=== PATIENT | male | born 1970 ===

== ENCOUNTER 2025-03-06 21:00 | Inpatient (IN) | payer BC ==
[~2025-03-06] VITALS: Ht 175.3 cm; Wt 77.5 kg
[2025-03-06 23:03] VITALS: RESP 16; O2SAT 97
[2025-03-06 23:47] VITALS: BP 115/78; PULSE 82; RESP 16; TEMP 97.5; O2SAT 98
[2025-03-07] MEDS ORDERED: acetaminophen 325mg tablet PO PRN (00:05)
[2025-03-07] MEDS: mag hydrox/Alum hydrox/simeth 30ml oral suspension PO ONE (00:29)
[2025-03-07] MEDS: magnesium hydroxide 30ml (MOM) UD suspension PO ONE (00:29)
[2025-03-07] MEDS: hydrOXYzine 25 MG tablet PO PRN ×2 (00:33→20:49)
[2025-03-07] MEDS: traZODone 50mg tablet PO PRN ×2 (00:34→20:48)
[2025-03-07] MEDS ORDERED: magnesium hydroxide 30ml (MOM) UD suspension PO PRN (00:50)
[2025-03-07] MEDS ORDERED: mag hydrox/Alum hydrox/simeth 30ml oral suspension PO PRN (00:50)
[2025-03-07 07:00] VITALS: RESP 18; O2SAT 99
[2025-03-07 08:00] VITALS: BP 115/75; PULSE 68; RESP 18; TEMP 98.3; O2SAT 99
--- NOTE | 2025-03-07 12:59 | HISTORY AND PHYSICAL ---
MH History & Physical - Blank History and Physical CHIEF COMPLIANT INCREASED ANXIETY HISTORY OF PRESENT ILLNESS 4-year-old male presents for feeling of anxiety and stress in suicidal ideations. Has been going on for some time. States that seems to come and go as his stress levels flare up. He has no direct plantar himself. Patient was recently started on Zoloft a couple of days ago but does not feel like this has helped. Has been very stressed out about work and his taxes he states. No acute medical complaints. He never attempted suicide before. States he has some knives at his house but not any guns or other weapons. CHART REVIEW [facility] call [facility] to evaluate client that was brought in by ambulance after having a panic attack. When [facility] arrived to the ER client was in bed 8.. Client was visibly shaking and was having a hard time speaking without having the shaking in his in his voice. Client had his friend with him that als o works with him. Client reports that he has had an increase in his depression and anxiety to the point that he feels like he is not functioning. Starting to missed work. Client has a gradual weight loss, loss of appetite, low motivation, feels like his head is starting to buzzed and is possibly hearing voices but is confused if it is him thinking or if they are voices. At for eye contact and concentration. Client is currently taking Zoloft 25 mg q.d., gabapentin 100 mg t.i.d., hydroxyzine 25 mg 1-2 tabs q.d. prn, when asked if client is having SI he reports that he has in the past but it also at the point where he does not care if he falls asleep and does not wake up. Active he is able to stay safe he comment was I can not prominence you anything, I will or I will not; client's friend Bhupinder Jacome (on JIMENEZ [phone]). For she has known him for a few years and has never seeing him this way in his very worried for him because he is not showing up to work in his visibly in the condition th at he is in. Client reports he has had a decrease in sleep, his major brain fog. Client was placed on DTS 5150. Client was not able to articulate any plan of safety. ASSESSMENT The patient was interviewed in observation room. The patient was actively sitting in rec room appears to be watching. 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 Denies AVH. The patient is stable no acute distress noted. The patient is depressed, very anxious, and engaged during session. Per staff report melissa is medication compliant. Will continue daily assessment and adjusting treatment as needed. Closely monitor behavior and response to medication during hospitalization. Discussed treatment plan with patient. ASE/risks and benefits of chosen treat ment. He verbalized understanding and consented to treatment. REVIEW OF LABS URINE TOX SCREEN NEGATIVE URINALYSIS NEGATIVE SODIUM 137 POTASSIUM 4.2 CHLORIDE 103 ANION GAP 11 BUN 11 CREATININE 0.91 CALCIUM 9.5 ALBUMIN 4.7 AST 37 ALT 29 WBC 5.8 RBC 5.88 HEMOGLOBIN 16.2 HEMATOCRIT 45.7 PLATELET 328 MENTAL STATUS EXAM APPEARANCE: APPROPRIATE..AVERAGE HEIGHT AND WEIGHT MALE. BLACK HAIR BALDING IN THE FRONT. FULL FACIAL HAIR. WEARING GREEN SCRUBS. 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 PROPRANOLOL 10 MG P.O. Q.H.S. PROZAC 10 MG P.O. Q.H.S. Monitoring by Staff, Milieu, Group, and Individual counseling as needed -- According to the [place] Suicide Assessment the above named patient is on Q15 MINUTE CHECKS. [id number]- The patient does not have a good safety plan for discharge at this time. We are still titrating medications to an effective dose while maintaining a therapeutic environment to prevent decompensation and readmission. REVIEW OF Clinical notes [X ] RN notes [X] PCT documentation [X] SW notes Labs [ X] Medications [X] Care trends/care activity [X] Vitals [X] DISCUSSION WITH bulldozer/loader/compactor/scraper [X] Staff SW [X] Treatment Team [X] DISCHARGE UNSURE AT THIS TIME. DISCHARGE HOME ONCE STABLE. Past Psychiatric History Past Psychiatric History DENIES ANY PSYCHIATRIC HOSPITALIZATION Past Medical History Past Medical History SEE MEDICAL H & P Past Surgical History Past Surgical History RIGHT KNEE BILATERAL ROTATOR CUFF SURGERY Substance Abuse History Substance Abuse History MARIJUANA-DENIES ALCOHOL-OCC ILLICIT DRUGS-DENIES TOBACCO-DENIES Personal History Current Living Situation [facility] Marital & Relationship History DIVORCE.3 CHILDREN.SINGLE Sexual History DEFER Occupational History EMPLOYED Social Activity BORN AND RAISED IN [place] 1 [employer] [employer] MOM AND DAD IN THE HOME 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
[2025-03-07] MEDS ORDERED: sertraline 50mg tablet PO SCH (13:15)
[2025-03-07] MEDS: LORazepam 1 MG tablet PO ONE (13:36)
--- NOTE | 2025-03-07 15:09 | HISTORY AND PHYSICAL ---
History & Physical Providers to CC ~ History of Present Illness Reason for Admit\Complaint: feeling of anxiety , stress and suicidal ideations History of Present Illness 54-year-old male presents for feeling of anxiety and stress in suicidal ideations. this has been going on for some time. Patient was recently started on Zoloft a couple of days ago but does not feel like this has helped. Has been very stressed out about work. No acute medical complaints. Patient feels that stresses too much to the point that he has no appetite and he is not hydrating much either. He lives by himself in his house. Currently he works in [employer]. Patient mentioned that his cholesterol levels were high but he is currently not on any cholesterol medication. He feels he has peripheral neuropathy. Denied use of any tobacco or any recreational drugs. he occasionally drinks alcohol. Allergies: Coded Allergies: No Known Drug Allergies (Verified Allergy, Unknown, 03/07/25) No Known Food Allergies (Verified Allergy, Unknown, 03/07/25) Past Medical History Past Medical History No significant past medical history except for elevated lipid levels Past Surgical History Surgical History Comment History of rotator cuff in past . Past Social History Social History Comment Denied use of any tobacco alcohol or any recreational drugs. He lives by himself in his house. ROS ROS Review of system as mentioned above in HPI rest of the review of system unremarkable Exam Vitals: Vital Signs Date Time Temp Pulse Resp B/P (MAP) Pulse Ox O2 Delivery O2 Flow Rate FiO2 03/07/25 08:00 98.3 68 18 115/75 (88) 99 Room Air General: General-patient not in any acute distress, alert awake , age-appropriate, appear in stress HEENT-atraumatic normocephalic, neck supple without elevated JVD, no thyromegaly or carotid bruit. No lymphadenopathy bilaterally. Eyes-no icterus or pallor seen in eyes Chest-clear to auscultation bilaterally, breathing nonlabored no tachypnea, no wheezing, no crepitation, no crackles. Heart-S1-S2 normal, regular heart rate no murmur Abdomen bowel sounds positive on auscultation, soft nondistended nontender no guarding, no rigidity Skin no active skin rash Neurology-grossly intact, nonfocal awake cooperated during physical examination Extremity- no pedal edema able to move all 4 extremitie, ambulate Psychiatry - patient appear in stress Additional Plan 54-year-old male presents for feeling of anxiety and stress in suicidal ideations. Further management of patient's stress anxiety and depression as per psychiatric team. Lipid level ordered for a.m. we will continue to follow patient from hospitalist team as needed. Patient is encouraged to hydrate well and to keep up with his meals. Date of Service: March 07, 2025 Billing Provider: TEREZA GLOVER MD Common Visit Codes: [id number] INP/OBS CARE (LOW) TEREZA GLOVER MD March 07, 2025 15:09
[2025-03-07 19:00] VITALS: RESP 16; O2SAT 97
[2025-03-07 20:00] VITALS: BP 96/64; PULSE 66; RESP 16; TEMP 97.5; O2SAT 97
[2025-03-07 20:45] VITALS: BP 116/73; PULSE 68
[2025-03-07] MEDS: FLUoxetine 10mg capsule PO SCH (20:47)
[2025-03-07] MEDS: propranolol 10mg tablet PO SCH (20:48)
[2025-03-08 07:00] VITALS: RESP 16; O2SAT 94
[2025-03-08 08:00] VITALS: BP 106/65; PULSE 69; RESP 16; TEMP 98; O2SAT 94
--- NOTE | 2025-03-08 14:43 | PROGRESS NOTE ---
Progress Note Dictate Providers to CC ~ Central Line/PICC still needed: N\\A Antibiotic Ordered?: No MRSA Education MRSA Education Provided to pt: No Objective Vitals Vital Signs Date Time Temp Pulse Resp B/P (MAP) Pulse Ox O2 Delivery O2 Flow Rate FiO2 03/08/25 08:00 98.0 69 16 106/65 (79) 94 Room Air Problem\\Assessment\\Plan Problems/Diagnosis: (1) Depression, unspecified (2) Anxiety disorder, unspecified Psychiatrist's Progress Note Date of Service: March 08, 2025 Notes CHART REVIEW [facility] call [facility] to evaluate client that was brought in by ambulance after having a panic attack. When [facility] arrived to the ER client was in bed 8.. Client was visibly shaking and was having a hard time speaking without having the shaking in his in his voice. Client had his friend with him that also works with him. Client reports that he has had an increase in his depression and anxiety to the point that he feels like he is not functioning. Starting to missed work. Client has a gradual weight loss, loss of appetite, low motivation, feels like his head is starting to buzzed and is possibly hearing voices but is confused if it is him thinking or if they are voices. At for eye contact and concentration. Client is currently taking Zoloft 25 mg q.d., gabapentin 100 mg t.i.d., hydroxyzine 25 mg 1-2 tabs q.d. prn, when asked if client is having SI he reports that he has in the past but it also at the point where he does not care if he falls asleep and does not wake up. Active he is able to stay safe he comment was I can not prominence you anything, I will or I will not; client's friend Bhupinder Jacome (on JIMENEZ [phone]). For she has known him for a few years and has never seeing him this way in his very worried for him because he is not showing up to work in his visibly in the condition that he is in. Client reports he has had a decrease in sleep, his major brain fog. Client was placed on DTS 5150. Client was not able to articulate any plan of safety. ASSESSMENT The patient was interviewed in observation room. The patient was actively sitting in rec room appears to be watching. The patient endorses "I am doing o judit I guess." "My anxiety is mellowed out but I still have the brain fog." Depression "I don't know." "I am usually a positive mohamud but everything is bad right now." Denies SI. Denies HI. Denies AVH. The patient is stable no acute distress noted. The patient is a bit depressed, a bit anxious, and engaged during session. Per staff report patient is medication compliant. Per staff report patient participating in group/unit activities. Will continue daily assessment and adjusting treatment as needed. Closely monitor behavior and response to medication during hospitalization. Results Of any Diagn. Testing REVIEW OF LABS URINE TOX SCREEN NEGATIVE URINALYSIS NEGATIVE SODIUM 137 POTASSIUM 4.2 CHLORIDE 103 ANION GAP 11 BUN 11 CREATININE 0.91 CALCIUM 9.5 ALBUMIN 4.7 AST 37 ALT 29 WBC 5.8 RBC 5.88 HEMOGLOBIN 16.2 HEMATOCRIT 45.7 PLATELET 328 Appearnace: Other (APPROPRIATE..AVERAGE HEIGHT AND WEIGHT MALE. BLACK HAIR BALDING IN THE FRONT. FULL FACIAL HAIR. WEARING GREEN SCRUBS.) Speech: Other (CIRCUMSTANTIAL) Eye Contact: Avoidant Motor Activity: Normal Affect: Flat Mood: Anxious, Depressed Attention: Distracted Hallucinations: None Other: None Suicidality: None Homicidality: None Delusions: None Behavior: Withdrawn Insight: Poor Judgment: Poor Treatment PROPRANOLOL 10 MG P.O. Q.H.S. PROZAC 10 MG P.O. Q.H.S. Monitoring by Staff, Milieu, Group, and Individual counseling as needed -- According to the [place] Suicide Assessment the above named patient is on Q15 MINUTE CHECKS. [id number]- The patient does not have a good safety plan for discharge at this time. We are still titrating medications to an effective dose while maintaining a therapeutic environment to prevent decompensation and readmission. REVIEW OF Clinical notes [X ] RN notes [X] PCT documentation [X] SW notes Labs [ X] Medications [X] Care trends/care activity [X] Vitals [X] DISCUSSION WITH ship boss [X] Staff SW [X] Treatment Team [X] Discharge UNSURE AT THIS TIME. DISCHARGE HOME ONCE STABLE. CODING VISIT-PSYCHIATRY Date of Service: March 08, 2025 Billing Provider: BERNARD SÁNCHEZ APRN Psych Common Visit Codes: [id number] INP/OBS CARE(Mod) BERNARD SÁNCHEZ [employer]EN[employer] SERVICE SU[employer]PLY DISTRIBUTOR March 08, 2025 14:43
[2025-03-08] MEDS: LORazepam 1 MG tablet PO ONE (15:27)
[2025-03-08 19:00] VITALS: RESP 16; O2SAT 96
[2025-03-08 20:00] VITALS: BP 110/70; PULSE 68; RESP 16; TEMP 97.1; O2SAT 96
[2025-03-09 07:00] VITALS: RESP 17; O2SAT 98
[2025-03-09 08:00] VITALS: BP 95/58; PULSE 57; RESP 17; TEMP 97.8; O2SAT 98
--- NOTE | 2025-03-09 12:14 | PROGRESS NOTE ---
Progress Note Dictate Providers to CC ~ Central Line/PICC still needed: N\\A Antibiotic Ordered?: No MRSA Education MRSA Education Provided to pt: No Objective Vitals Vital Signs Date Time Temp Pulse Resp B/P (MAP) Pulse Ox O2 Delivery O2 Flow Rate FiO2 03/09/25 08:00 97.8 57 17 95/58 (70) 98 Room Air Problem\\Assessment\\Plan Problems/Diagnosis: (1) Depression, unspecified (2) Anxiety disorder, unspecified Psychiatrist's Progress Note Date of Service: March 09, 2025 Notes CHART REVIEW [facility] call [facility] to evaluate client that was brought in by ambulance after having a panic attack. When [facility] arrived to the ER client was in bed 8.. Client was visibly shaking and was having a hard time speaking without having the shaking in his in his voice. Client had his friend with him that also works with him. Client reports that he has had an increase in his depression and anxiety to the point that he feels like he is not functioning. Starting to missed work. Client has a gradual weight loss, loss of appetite, low motivation, feels like his head is starting to buzzed and is possibly hearing voices but is confused if it is him thinking or if they are voices. At for eye contact and concentration. Client is currently taking Zoloft 25 mg q.d., gabapentin 100 mg t.i.d., hydroxyzine 25 mg 1-2 tabs q.d. prn, when asked if client is having SI he reports that he has in the past but it also at the point where he does not care if he falls asleep and does not wake up. Active he is able to stay safe he comment was I can not prominence you anything, I will or I will not; client's friend Bhupinder Jacome (on JIMENEZ [phone]). For she has known him for a few years and has never seeing him this way in his very worried for him because he is not showing up to work in his visibly in the condition that he is in. Client reports he has had a decrease in sleep, his major brain fog. Client was placed on DTS 5150. Client was not able to articulate any plan of safety. ASSESSMENT The patient was interviewed in observation room. The patient was actively sitting in rec room appears to be watching. The patient endorses "I am a bit sl eepy." "I took 2 sleeping pills last night." Depression "It is okay right now." "I don't really feel anxiety right now maybe because I am sleepy from the meds." Denies SI. Denies HI. Denies AVH. The patient is stable no acute distress noted. The patient is less depressed, less anxious, and engaged during session. Per staff report patient is medication compliant. The patient encouraged not to take anything and trazodone together to avoid over sedation. Per staff report patient participating in group/unit a ctivities. Will continue daily assessment and adjusting treatment as needed. Closely monitor behavior and response to medication during hospitalization. Results Of any Diagn. Testing REVIEW OF LABS URINE TOX SCREEN NEGATIVE URINALYSIS NEGATIVE SODIUM 137 POTASSIUM 4.2 CHLORIDE 103 ANION GAP 11 BUN 11 CREATININE 0.91 CALCIUM 9.5 ALBUMIN 4.7 AST 37 ALT 29 WBC 5.8 RBC 5.88 HEMOGLOBIN 16.2 HEMATOCRIT 45.7 PLATELET 328 Appearnace: Other (APPROPRIATE..AVERAGE HEIGHT AND WEIGHT MALE. BLACK HAIR BALDING IN THE FRONT. FULL FACIAL HAIR. WEARING GREEN SCRUBS.) Eye Contact: Normal, Other Motor Activity: Normal Affect: Constricted Mood: Depressed Orientation Impairment: None Memory Impairment: None Attention: Normal Hallucinations: None Other: None Suicidality: None Homicidality: None Delusions: None Behavior: Cooperative Insight: Poor Judgment: Poor Treatment PROPRANOLOL 10 MG P.O. QAM PROZAC 10 MG P.O. QAM Monitoring by Staff, Milieu, Group, and Individual counseling as needed -- According to the [place] Suicide Assessment the above named patient is on Q15 MINUTE CHECKS. [id number]- The patient does not have a good safety plan for discharge at this time. We are still titrating medications to an effective dose while maintaining a therapeutic environment to prevent decompensation and readmission. REVIEW OF Clinical notes [X ] RN notes [X] PCT documentation [X] SW notes Labs [ X] Medications [X] Care trends/care activity [X] Vitals [X] DISCUSSION WITH manager visual [X] Staff SW [X] Treatment Team [X] Discharge UNSURE AT THIS TIME. DISCHARGE HOME ONCE STABLE. CODING VISIT-PSYCHIATRY Date of Service: March 09, 2025 Billing Provider: PRINCESS,BERNARD CNA HHA Psych Common Visit Codes: [id number] INP/OBS CARE(Mod) BERNARD SÁNCHEZ APRN March 09, 2025 12:14
--- NOTE | 2025-03-09 16:43 | PROGRESS NOTE ---
Daily Progress Note Providers to CC ~ Antibiotic Timeout Antibiotic Ordered?: No Subjective Patient was seen in his room looks comfortable feeling better. No other new concerns Objective Vital Signs Date Time Temp Pulse Resp B/P (MAP) Pulse Ox O2 Delivery O2 Flow Rate FiO2 03/09/25 08:00 97.8 57 17 95/58 (70) 98 Room Air General-patient not in any acute distress, alert awake , age-appropriate, appear in stress HEENT-atraumatic normocephalic, neck supple without elevated JVD, no thyromegaly or carotid bruit. No lymphadenopathy bilaterally. Eyes-no icterus or pallor seen in eyes Chest-clear to auscultation bilaterally, breathing nonlabored no tachypnea, no wheezing, no crepitation, no crackles. Heart-S1-S2 normal, regular heart rate no murmur Abdomen bowel sounds positive on auscultation, soft nondistended nontender no guarding, no rigidity Skin no active skin rash Neurology-grossly intact, nonfocal awake cooperated during physical examination Extremity- no pedal edema able to move all 4 extremitie, ambulate Psychiatry - patient appear in stress Problem\Assessment\Plan 54-year-old male presents for feeling of anxiety and stress in suicidal ideations. Further management of patient's stress anxiety and depression as per psychiatric team. Lipid level ordered for a.m. we will continue to follow patient from hospitalist team as needed. Patient is encouraged to hydrate well and to keep up with his meals. Date of Service: March 09, 2025 Billing Provider: TEREZA GLOVER MD Common Visit Codes: [id number] INP/OBS CARE(LOW) TEREZA GLOVER MD March 09, 2025 16:43
[2025-03-09 19:00] VITALS: RESP 16; O2SAT 98
[2025-03-09 20:00] VITALS: BP 111/66; PULSE 73; RESP 16; TEMP 97.2; O2SAT 98
[2025-03-09] MEDS: loratadine 10mg tablet PO STA (22:29)
[2025-03-10 07:00] VITALS: RESP 16; O2SAT 97
[2025-03-10 08:00] VITALS: BP 119/75; PULSE 62; RESP 16; TEMP 98; O2SAT 97
--- NOTE | 2025-03-10 18:00 | PROGRESS NOTE ---
Progress Note Dictate Providers to CC ~ Central Line/PICC still needed: N\\A Antibiotic Ordered?: No MRSA Education MRSA Education Provided to pt: No Objective Vitals Vital Signs Date Time Temp Pulse Resp B/P (MAP) Pulse Ox O2 Delivery O2 Flow Rate FiO2 03/10/25 08:00 98.0 62 16 119/75 (90) 97 Room Air Problem\\Assessment\\Plan Problems/Diagnosis: (1) Depression, unspecified (2) Anxiety disorder, unspecified Psychiatrist's Progress Note Date of Service: March 10, 2025 Notes CHART REVIEW [facility] call [facility] to evaluate client that was brought in by ambulance after having a panic attack. When [facility] arrived to the ER client was in bed 8.. Client was visibly shaking and was having a hard time speaking without having the shaking in his in his voice. Client had his friend with him that also works with him. Client reports that he has had an increase in his depression and anxiety to the point that he feels like he is not functioning. Starting to missed work. Client has a gradual weight loss, loss of appetite, low motivation, feels like his head is starting to buzzed and is possibly hearing voices but is confused if it is him thinking or if they are voices. At for eye contact and concentration. Client is currently taking Zoloft 25 mg q.d., gabapentin 100 mg t.i.d., hydroxyzine 25 mg 1-2 tabs q.d. prn, when asked if client is having SI he reports that he has in the past but it also at the point where he does not care if he falls asleep and does not wake up. Active he is able to stay safe he comment was I can not prominence you anything, I will or I will not; client's friend Bhupinder Jacoem (on JIMENEZ [phone]). For she has known him for a few years and has never seeing him this way in his very worried for him because he is not showing up to work in his visibly in the condition that he is in. Client reports he has had a decrease in sleep, his major brain fog. Client was placed on DTS 5150. Client was not able to articulate any plan of safety. ASSESSMENT The patient was interviewed in observation room. The patient was actively sitting in rec room appears to be watching. The patient endorses "I had a ruff night last night; I had some dreams about my work and stuff, stressed." "I get a lot anxious at night when I get to thinking while in bed." Denies SI. Denies HI. Denies AVH. The patient is stable no acute distress noted. The patient is less depressed, l ess anxious, and engaged during session. Per staff report patient is medication compliant. Per staff report patient participating in group/unit activities. Will continue daily assessment and adjusting treatment as needed. Closely monitor behavior and response to medication during hospitalization. Results Of any Diagn. Testing REVIEW OF LABS URINE TOX SCREEN NEGATIVE URINALYSIS NEGATIVE SODIUM 137 POTASSIUM 4.2 CHLORIDE 103 ANION GAP 11 BUN 11 CREATININE 0.91 CALCIUM 9.5 ALBUMIN 4.7 AST 37 ALT 29 WBC 5.8 RBC 5.88 HEMOGLOBIN 16.2 HEMATOCRIT 45.7 PLATELET 328 Appearnace: Other (APPROPRIATE..AVERAGE HEIGHT AND WEIGHT MALE. BLACK HAIR BALDING IN THE FRONT. FULL FACIAL HAIR. WEARING GREEN SCRUBS) Speech: Other (CIRCUMSTANTIAL) Eye Contact: Other (INTERMITTENT) Motor Activity: Normal Affect: Flat Mood: Anxious, Depressed Orientation Impairment: None Memory Impairment: None Attention: Normal Hallucinations: None Other: None Suicidality: None Homicidality: None Delusions: None Behavior: Cooperative Insight: Fair, Poor Judgment: Fair, Poor Treatment PROPRANOLOL 10 MG P.O. QAM Increased PROZAC 20 MG P.O. QAM Monitoring by Staff, Milieu, Group, and Individual counseling as needed -- According to the [place] Suicide Assessment the above named patient is on Q15 MINUTE CHECKS. [id number]- The patient does not have a good safety plan for discharge at this time. We are still titrating medications to an effective dose while maintaining a therapeutic environment to prevent decompensation and readmission. REVIEW OF Clinical notes [X ] RN notes [X] PCT documentation [X] SW notes Labs [ X] Medications [X] Care trends/care activity [X] Vitals [X] DISCUSSION WITH bailer operators supervisor [X] Staff SW [X] Treatment Team [X] Discharge UNSURE AT THIS TIME. DISCHARGE HOME ONCE STABLE. CODING VISIT-PSYCHIATRY Date of Service: March 10, 2025 Billing Provider: BERNARD SÁNCHEZ APRN Psych Common Visit Codes: [id number] INP/OBS CARE(Mod) BERNARD SÁNCHEZ APRN March 10, 2025 18:00
[2025-03-10 19:00] VITALS: RESP 18; O2SAT 95
[2025-03-10 20:00] VITALS: BP 121/70; PULSE 79; RESP 18; TEMP 98.7; O2SAT 95
[2025-03-10] MEDS: FLUoxetine 10mg capsule PO SCH (21:26)
[2025-03-11 07:00] VITALS: RESP 16; O2SAT 97
[2025-03-11 08:00] VITALS: BP 109/56; PULSE 66; RESP 16; TEMP 98.5; O2SAT 97
[2025-03-11] MEDS: LORazepam 0.5 MG tablet PO PRN (08:39)
[2025-03-11] MEDS: LORazepam 0.5 MG tablet PO ONE (08:39)
--- NOTE | 2025-03-11 10:55 | PROGRESS NOTE ---
Progress Note Dictate Providers to CC ~ Central Line/PICC still needed: N\\A Antibiotic Ordered?: No MRSA Education MRSA Education Provided to pt: No Objective Vitals Vital Signs Date Time Temp Pulse Resp B/P (MAP) Pulse Ox O2 Delivery O2 Flow Rate FiO2 03/11/25 08:00 98.5 66 16 109/56 (73) 97 Room Air Problem\\Assessment\\Plan Problems/Diagnosis: (1) Depression, unspecified (2) Anxiety disorder, unspecified Psychiatrist's Progress Note Date of Service: March 11, 2025 Notes CHART REVIEW [facility] call [facility] to evaluate client that was brought in by ambulance after having a panic attack. When [facility]CT arrived to the ER client was in bed 8.. Client was visibly shaking and was having a hard time speaking without having the shaking in his in his voice. Client had his friend with him that also works with him. Client reports that he has had an increase in his depression and anxiety to the point that he feels like he is not functioning. Starting to missed work. Client has a gradual weight loss, loss of appetite, low motivation, feels like his head is starting to buzzed and is possibly hearing voices but is confused if it is him thinking or if they are voices. At for eye contact and concentration. Client is currently taking Zoloft 25 mg q.d., gabapentin 100 mg t.i.d., hydroxyzine 25 mg 1-2 tabs q.d. prn, when asked if client is having SI he reports that he has in the past but it also at the point where he does not care if he falls asleep and does not wake up. Active he is able to stay safe he comment was I can not prominence you anything, I will or I will not; client's friend Bhupinder Jacome (on [employer]IM[employer] [phone]). For she has known him for a few years and has never seeing him this way in his very worried for him because he is not showing up to work in his visibly in the condition that he is in. Client reports he has had a decrease in sleep, his major brain fog. Client was placed on DTS 5150. Client was not able to articulate any plan of safety. ASSESSMENT The patient was interviewed in observation room. The patient was actively walking in room. The patient endorses "I am very anxious." Denies SI. Denies HI. Denies AVH. The patient is stable no acute distress noted. The patient is less depressed, a bit anxious, and engaged during session. Per staff report patient is medication compliant. Per staff report patient participating in group/unit activities. Will continue daily assessment and adjusting treatment as needed. Closely monitor behavior and response to medication during hospitalization. Results Of any Diagn. Testing REVIEW OF LABS URINE TOX SCREEN NEGATIVE URINALYSIS NEGATIVE SODIUM 137 POTASSIUM 4.2 CHLORIDE 103 ANION GAP 11 BUN 11 CREATININE 0.91 CALCIUM 9.5 ALBUMIN 4.7 AST 37 ALT 29 WBC 5.8 RBC 5.88 HEMOGLOBIN 16.2 HEMATOCRIT 45.7 PLATELET 328 Appearnace: Other (APPROPRIATE..AVERAGE HEIGHT AND WEIGHT MALE. BLACK HAIR BALDING IN THE FRONT. FULL FACIAL HAIR. WEARING GREEN SCRUBS) Speech: Other (CIRCUMSTANTIAL) Eye Contact: Other (INTERMITTENT) Motor Activity: Normal Affect: Constricted Mood: Anxious Orientation Impairment: None Memory Impairment: None Attention: Normal Hallucinations: None Other: None Suicidality: None Homicidality: None Delusions: None Behavior: Cooperative Insight: Fair, Poor Judgment: Poor Treatment The patients increased anxiety caould be from the increase in his Prozac. symptoms should subside in a few weeks. if not may look to switching to Cymbalta. PROPRANOLOL 10 MG P.O. QAM PROZAC 20 MG P.O. QAM Monitoring by Staff, Milieu, Group, and Individual counseling as needed -- According to the [place] Suicide Assessment the above named patient is on Q15 MINUTE CHECKS. VOLUNTARY REVIEW OF Clinical notes [X ] RN notes [X] PCT documentation [X] SW notes Labs [ X] Medications [X] Care trends/care activity [X] Vitals [X] DISCUSSION WITH internal grinder [X] Staff SW [X] Treatment Team [X] Discharge UNSURE AT THIS TIME. DISCHARGE HOME ONCE STABLE. CODING VISIT-PSYCHIATRY Date of Service: March 11, 2025 Billing Provider: BERNARD SÁNCHEZ APRN Psych Common Visit Codes: [id number] INP/OBS CARE(Mod) BERNARD SÁNCHEZ APRN March 11, 2025 10:55
--- NOTE | 2025-03-11 18:21 | PROGRESS NOTE ---
Daily Progress Note Providers to CC ~ Antibiotic Timeout Antibiotic Ordered?: No Subjective Patient was seen in mental health unit in his room. He is ambulating well looks comfortable. He feels that his anxieties still not getting better. Followed by psychiatric team Objective Vital Signs Date Time Temp Pulse Resp B/P (MAP) Pulse Ox O2 Delivery O2 Flow Rate FiO2 03/11/25 08:00 98.5 66 16 109/56 (73) 97 Room Air General-patient not in any acute distress, alert awake , age-appropriate, appear in stress HEENT-atraumatic normocephalic, neck supple without elevated JVD, no thyromegaly or carotid bruit. No lymphadenopathy bilaterally. Eyes-no icterus or pallor seen in eyes Chest-clear to auscultation bilaterally, breathing nonlabored no tachypnea, no wheezing, no crepitation, no crackles. Heart-S1-S2 normal, regular heart rate no murmur Abdomen bowel sounds positive on auscultation, soft nondistended nontender no guarding, no rigidity Skin no active skin rash Neurology-grossly intact, nonfocal awake cooperated during physical examination Extremity- no pedal edema able to move all 4 extremitie, ambulate Psychiatry - patient appear in stress Problem\Assessment\Plan 54-year-old male presents for feeling of anxiety and stress in suicidal ideations. Further management of patient's stress anxiety and depression as per psychiatric team. Lipid level ordered for a.m. we will continue to follow patient from hospitalist team as needed. Patient is encouraged to hydrate well and to keep up with his meals. Date of Service: March 11, 2025 Billing Provider: TEREZA GLOVER MD Common Visit Codes: [id number] INP/OBS CARE(LOW) TEREZA GLOVER MD March 11, 2025 18:21
[2025-03-11] MEDS: LORazepam 1 MG tablet PO SCH (18:57)
[2025-03-11 19:00] VITALS: RESP 17; O2SAT 98
[2025-03-11 20:00] VITALS: BP 136/96; PULSE 84; RESP 17; TEMP 98.3; O2SAT 96
--- NOTE | 2025-03-12 06:30 | PROGRESS NOTE ---
Progress Note Dictate Providers to CC ~ Central Line/PICC still needed: N\\A Antibiotic Ordered?: No MRSA Education MRSA Education Provided to pt: No Objective Vitals Vital Signs Date Time Temp Pulse Resp B/P (MAP) Pulse Ox O2 Delivery O2 Flow Rate FiO2 03/11/25 20:00 98.3 84 17 136/96 (109) 96 Room Air Problem\\Assessment\\Plan Problems/Diagnosis: (1) Depression, unspecified (2) Anxiety disorder, unspecified Psychiatrist's Progress Note Date of Service: March 12, 2025 Notes CHART REVIEW [facility] to evaluate client that was brought in by ambulance after having a panic attack. When [facility] arrived to the ER client was in bed 8.. Client was visibly shaking and was having a hard time speaking without having the shaking in his in his voice. Client had his friend with him that also works with him. Client reports that he has had an increase in his depression and anxiety to the point that he feels like he is not functioning. Starting to missed work. Client has a gradual weight loss, loss of appetite, low motivation, feels like his head is starting to buzzed and is possibly hearing voices but is confused if it is him thinking or if they are voices. At for eye contact and concentration. Client is currently taking Zoloft 25 mg q.d., gabapentin 100 mg t.i.d., hydroxyzine 25 mg 1-2 tabs q.d. prn, when asked if client is having SI he reports that he has in the past but it also at the point where he does not care if he falls asleep and does not wake up. Active he is able to stay safe he comment was I can not prominence you anything, I will or I will not; client's friend Bhupinder Jacome (on [employer] [phone]). For she has known him for a few years and has never seeing him this way in his very worried for him because he is not showing up to work in his visibly in the condition that he is in. Client reports he has had a decrease in sleep, his major brain fog. Client was placed on DTS 5150. Client was not able to articulate any plan of safety. ASSESSMENT The patient was interviewed in observation room. The patient was actively sitting in rec room appears to be watching. The patient endorses "I am trying to hang in there." I just took a hydroxyzine and I am kind of sleepy now." The patient endorses adequate sleep and food intake. Denies SI. Denies HI. Denies AVH. The patient is stable no acute distress noted. The patient presents as cooperative, anxious, and engaged during session. Per staff report patient is medication compliant. Per staff report patient participating in group/unit activities. Will continue daily assessment and adjusting treatment as needed. Closely monitor behavior and response to medication during hospitalization. Results Of any Diagn. Testing REVIEW OF LABS URINE TOX SCREEN NEGATIVE URINALYSIS NEGATIVE SODIUM 137 POTASSIUM 4.2 CHLORIDE 103 ANION GAP 11 BUN 11 CREATININE 0.91 CALCIUM 9.5 ALBUMIN 4.7 AST 37 ALT 29 WBC 5.8 RBC 5.88 HEMOGLOBIN 16.2 HEMATOCRIT 45.7 PLATELET 328 Appearnace: Other (APPROPRIATE.AVERAGE HEIGHT AND WEIGHT MALE. BLACK HAIR BALDING IN THE FRONT. FULL FACIAL HAIR. WEARING GREEN SCRUBS) Speech: Other (CIRCUMSTANTIAL) Eye Contact: Other (INTERMITTENT) Motor Activity: Normal Affect: Constricted Mood: Anxious Orientation Impairment: None Attention: Normal Hallucinations: None Other: None Suicidality: None Homicidality: None Delusions: None Behavior: Cooperative Insight: Fair Judgment: Fair, Poor Treatment PROPRANOLOL 10 MG P.O. TID PROZAC 20 MG P.O. QAM Monitoring by Staff, Milieu, Group, and Individual counseling as needed -- According to the [place] Suicide Assessment the above named patient is on Q15 MINUTE CHECKS. VOLUNTARY REVIEW OF Clinical notes [X ] RN notes [X] PCT documentation [X] SW notes Labs [ X] Medications [X] Care trends/care activity [X] Vitals [X] DISCUSSION WITH head charrer [X] Staff SW [X] Treatment Team [X] Discharge UNSURE AT THIS TIME. DISCHARGE HOME ONCE STABLE CODING VISIT-PSYCHIATRY Date of Service: March 12, 2025 Billing Provider: BERNARD SÁNCHEZ APRN Psych Common Visit Codes: [id number] INP/OBS CARE(Mod) BERNARD SÁNCHEZ APRN March 12, 2025 06:30
[2025-03-12 07:00] VITALS: RESP 16; O2SAT 98
[2025-03-12 08:00] VITALS: BP 102/78; PULSE 66; RESP 14; TEMP 98.1; O2SAT 96
[2025-03-12] MEDS: propranolol 10mg tablet PO SCH (08:51)
[2025-03-12 10:54] VITALS: BP 112/73; PULSE 60; RESP 14; TEMP 97.2; O2SAT 97
[2025-03-12 19:30] VITALS: RESP 16; O2SAT 98
[2025-03-12 20:08] VITALS: BP 116/66; PULSE 64; RESP 16; TEMP 97.3; O2SAT 98
[2025-03-13 07:00] VITALS: RESP 14; O2SAT 95
[2025-03-13 08:00] VITALS: BP 115/71; PULSE 53; RESP 14; TEMP 98.4; O2SAT 95
--- NOTE | 2025-03-13 14:52 | PROGRESS NOTE ---
Progress Note Dictate Providers to CC ~ Central Line/PICC still needed: N\\A Antibiotic Ordered?: No MRSA Education MRSA Education Provided to pt: No Objective Vitals Vital Signs Date Time Temp Pulse Resp B/P (MAP) Pulse Ox O2 Delivery O2 Flow Rate FiO2 03/13/25 08:00 98.4 53 14 115/71 (86) 95 Room Air Problem\\Assessment\\Plan Problems/Diagnosis: (1) Depression, unspecified (2) Anxiety disorder, unspecified Psychiatrist's Progress Note Date of Service: March 13, 2025 Notes CHART REVIEW [facility] call [facility] to evaluate client that was brought in by ambulance after having a panic attack. When [facility]CT arrived to the ER client was in bed 8.. Client was visibly shaking and was having a hard time speaking without having the shaking in his in his voice. Client had his friend with him that also works with him. Client reports that he has had an increase in his depression and anxiety to the point that he feels like he is not functioning. Starting to missed work. Client has a gradual weight loss, loss of appetite, low motivation, feels like his head is starting to buzzed and is possibly hearing voices but is confused if it is him thinking or if they are voices. At for eye contact and concentration. Client is currently taking Zoloft 25 mg q.d., gabapentin 100 mg t.i.d., hydroxyzine 25 mg 1-2 tabs q.d. prn, when asked if client is having SI he reports that he has in the past but it also at the point where he does not care if he falls asleep and does not wake up. Active he is able to stay safe he comment was I can not prominence you anything, I will or I will not; client's friend Bhupinder Jacome (on [employer] [phone]). For she has known him for a few years and has never seeing him this way in his very worried for him because he is not showing up to work in his visibly in the condition that he is in. Client reports he has had a decrease in sleep, his major brain fog. Client was placed on DTS 5150. Client was not able to articulate any plan of safety. ASSESSMENT The patient was interviewed in observation room. The patient was actively sitting in rec room appears to be watching. The patient endorses "a little ant sy." "I am thinking about my home life." The patient is unsure what he is going to do about returning to his current job due to the stress that it is causing him. The patient endorses adequate sleep and food intake. Denies SI. Denies HI. Denies AVH. The patient is stable no acute distress noted. The patient presents as cooperative, a bit anxious, and engaged during session. Per staff report patient is medication compliant. Per staff report patient participating in group/unit activities. The patient was encourage to find some coping skills to help deal with his anxiety. Will continue daily assessment and adjusting treatment as needed. Closely monitor behavior and response to medication during hospitalization. Results Of any Diagn. Testing REVIEW OF LABS URINE TOX SCREEN NEGATIVE URINALYSIS NEGATIVE SODIUM 137 POTASSIUM 4.2 CHLORIDE 103 ANION GAP 11 BUN 11 CREATININE 0.91 CALCIUM 9.5 ALBUMIN 4.7 AST 37 ALT 29 WBC 5.8 RBC 5.88 HEMOGLOBIN 16.2 HEMATOCRIT 45.7 PLATELET 328 Appearnace: Other (APPROPRIATE.AVERAGE HEIGHT AND WEIGHT MALE. BLACK HAIR BALDING IN THE FRONT. FULL FACIAL HAIR. WEARING GREEN SCRUBS) Speech: Other (CIRCUMSTANTIAL) Eye Contact: Other (INTERMITTENT) Motor Activity: Normal Affect: Flat Mood: Anxious Orientation Impairment: None Memory Impairment: None Attention: Normal Hallucinations: None Other: None Homicidality: None Delusions: None Behavior: Cooperative Insight: Fair Judgment: Fair, Poor Treatment Discontinue PROPRANOLOL 10 MG P.O. TID-PATIENT REFUSING Increase PROZAC 30 MG P.O. QAM HYDROXYZINE 50 MG P.O. Q.6 Monitoring by Staff, Milieu, Group, and Individual counseling as needed -- According to the [place] Suicide Assessment the above named patient is on Q15 MINUTE CHECKS. VOLUNTARY REVIEW OF Clinical notes [X ] RN notes [X] PCT documentation [X] SW notes Labs [ X] Medications [X] Care trends/care activity [X] Vitals [X] DISCUSSION WITH budder [X] Staff SW [X] Treatment Team [X] Discharge UNSURE AT THIS TIME. DISCHARGE HOME ONCE STABLE CODING VISIT-PSYCHIATRY Date of Service: March 13, 2025 Billing Provider: BERNARD SÁNCHEZ APRN Psych Common Visit Codes: [id number] INP/OBS CARE(Mod) BERNARD SÁNCHEZ APRN March 13, 2025 14:52
[2025-03-13] MEDS ORDERED: FLUoxetine 10mg capsule PO SCH (15:00)
[2025-03-13] MEDS: FLUoxetine 10mg capsule PO SCH (15:17)
--- NOTE | 2025-03-13 18:50 | PROGRESS NOTE ---
Daily Progress Note Providers to CC ~ Antibiotic Timeout Antibiotic Ordered?: No Subjective Patient was seen in mental health unit in his room. He is ambulating well looks comfortable. Refusing to take Atarax for anxiety as per nursing staff Objective Vital Signs Date Time Temp Pulse Resp B/P (MAP) Pulse Ox O2 Delivery O2 Flow Rate FiO2 03/13/25 08:00 98.4 53 14 115/71 (86) 95 Room Air General-patient not in any acute distress, alert awake , age-appropriate, appear in stress HEENT-atraumatic normocephalic, neck supple without elevated JVD, no thyromegaly or carotid bruit. No lymphadenopathy bilaterally. Eyes-no icterus or pallor seen in eyes Chest-clear to auscultation bilaterally, breathing nonlabored no tachypnea, no wheezing, no crepitation, no crackles. Heart-S1-S2 normal, regular heart rate no murmur Abdomen bowel sounds positive on auscultation, soft nondistended nontender no guarding, no rigidity Skin no active skin rash Neurology-grossly intact, nonfocal awake cooperated during physical examination Extremity- no pedal edema able to move all 4 extremitie, ambulate Psychiatry - patient appear in stress Problem\Assessment\Plan 54-year-old male presents for feeling of anxiety and stress in suicidal ideations. Further management of patient's stress anxiety and depression as per psychiatric team. Lipid level ordered for a.m. we will continue to follow patient from hospitalist team as needed. Patient is encouraged to hydrate well and to keep up with his meals. Date of Service: March 13, 2025 Billing Provider: TEREZA GLOVER MD Common Visit Codes: [id number] INP/OBS CARE(LOW) TEREZA GLOVER MD March 13, 2025 18:50
[2025-03-13 19:00] VITALS: RESP 16; O2SAT 99
[2025-03-13 20:00] VITALS: BP 114/70; PULSE 67; RESP 16; TEMP 98.2; O2SAT 99
[2025-03-13] MEDS: acetaminophen 325mg tablet PO PRN (20:20)
[2025-03-14 07:00] VITALS: RESP 16; O2SAT 97
[2025-03-14 08:00] VITALS: BP 113/75; PULSE 84; RESP 16; TEMP 97.4; O2SAT 97
--- NOTE | 2025-03-14 14:23 | PROGRESS NOTE ---
Progress Note Dictate Providers to CC ~ Central Line/PICC still needed: N\\A Antibiotic Ordered?: No MRSA Education MRSA Education Provided to pt: No Objective Vitals Vital Signs Date Time Temp Pulse Resp B/P (MAP) Pulse Ox O2 Delivery O2 Flow Rate FiO2 03/14/25 08:00 97.4 84 16 113/75 (88) 97 Room Air Problem\\Assessment\\Plan Problems/Diagnosis: (1) Depression, unspecified (2) Anxiety disorder, unspecified Psychiatrist's Progress Note Date of Service: March 14, 2025 Notes CHART REVIEW [facility] call [facility] to evaluate client that was brought in by ambulance after having a panic attack. When [facility]CT arrived to the ER client was in bed 8.. Client was visibly shaking and was having a hard time speaking without having the shaking in his in his voice. Client had his friend with him that also works with him. Client reports that he has had an increase in his depression and anxiety to the point that he feels like he is not functioning. Starting to missed work. Client has a gradual weight loss, loss of appetite, low motivation, feels like his head is starting to buzzed and is possibly hearing voices but is confused if it is him thinking or if they are voices. At for eye contact and concentration. Client is currently taking Zoloft 25 mg q.d., gabapentin 100 mg t.i.d., hydroxyzine 25 mg 1-2 tabs q.d. prn, when asked if client is having SI he reports that he has in the past but it also at the point where he does not care if he falls asleep and does not wake up. Active he is able to stay safe he comment was I can not prominence you anything, I will or I will not; client's friend Bhupinder Jacome (on [employer] [phone]). For she has known him for a few years and has never seeing him this way in his very worried for him because he is not showing up to work in his visibly in the condition that he is in. Client reports he has had a decrease in sleep, his major brain fog. Client was placed on DTS 5150. Client was not able to articulate any plan of safety. ASSESSMENT The patient was interviewed in observation room. The patient was actively sitting edge of bed. The patient endorses "I am okay." "I need to be home to pay my rent on the ." "I hope the medication still work when I get home." "I wish I was back the way I was before instead of being like this." Denies SI. Denies HI. Denies AVH. The patient is stable no acute distress noted. The patient presents as coordinator hotels perative, a bit anxious, and engaged during session. Per staff report patient is medication compliant. Per staff report patient participating in group/unit activities. The patient was encourage to find some coping skills to help deal with his anxiety. Will continue daily assessment and adjusting treatment as needed. Closely monitor behavior and response to medication during hospi talization. Results Of any Diagn. Testing REVIEW OF LABS URINE TOX SCREEN NEGATIVE URINALYSIS NEGATIVE SODIUM 137 POTASSIUM 4.2 CHLORIDE 103 ANION GAP 11 BUN 11 CREATININE 0.91 CALCIUM 9.5 ALBUMIN 4.7 AST 37 ALT 29 WBC 5.8 RBC 5.88 HEMOGLOBIN 16.2 HEMATOCRIT 45.7 PLATELET 328 Appearnace: Other (APPROPRIATE.AVERAGE HEIGHT AND WEIGHT MALE. BLACK HAIR BALDING IN THE FRONT. FULL FACIAL HAIR. WEARING GREEN SCRUBS) Speech: Other (CIRCUMSTANTIAL) Eye Contact: Other (INTERMITTENT) Motor Activity: Normal Affect: Constricted Mood: Anxious Orientation Impairment: None Memory Impairment: None Attention: Normal Hallucinations: None Other: None Suicidality: None Homicidality: None Delusions: None Behavior: Cooperative Insight: Fair, Poor Judgment: Poor Treatment PROZAC 30 MG P.O. QAM HYDROXYZINE 50 MG P.O. Q.6 Monitoring by Staff, Milieu, Group, and Individual counseling as needed -- According to the [place] Suicide Assessment the above named patient is on Q15 MINUTE CHECKS. VOLUNTARY REVIEW OF Clinical notes [X ] RN notes [X] PCT documentation [X] SW notes Labs [ X] Medications [X] Care trends/care activity [X] Vitals [X] DISCUSSION WITH cleaning associate [X] Staff SW [X] Treatment Team [X] Discharge UNSURE AT THIS TIME. DISCHARGE HOME ONCE STABLE CODING VISIT-PSYCHIATRY Date of Service: March 14, 2025 Billing Provider: BERNARD SÁNCHEZ APRN Psych Common Visit Codes: [id number] INP/OBS CARE(Mod) BERNARD SÁNCHEZ APRN March 14, 2025 14:23
[2025-03-14 19:00] VITALS: RESP 16; O2SAT 97
[2025-03-14 20:00] VITALS: BP 105/75; PULSE 71; RESP 16; TEMP 98; O2SAT 97
[2025-03-15 08:00] VITALS: BP 110/69; PULSE 65; RESP 16; TEMP 98.6; O2SAT 98
--- NOTE | 2025-03-15 15:23 | PROGRESS NOTE ---
Progress Note Dictate Providers to CC ~ Central Line/PICC still needed: N\\A Antibiotic Ordered?: No MRSA Education MRSA Education Provided to pt: No Objective Vitals Vital Signs Date Time Temp Pulse Resp B/P (MAP) Pulse Ox O2 Delivery O2 Flow Rate FiO2 03/15/25 08:00 98.6 65 16 110/69 (83) 98 Room Air Problem\\Assessment\\Plan Problems/Diagnosis: (1) Depression, unspecified (2) Anxiety disorder, unspecified Psychiatrist's Progress Note Date of Service: March 15, 2025 Notes CHART REVIEW [facility] call [facility] to evaluate client that was brought in by ambulance after having a panic attack. When [facility] arrived to the ER client was in bed 8.. Client was visibly shaking and was having a hard time speaking without having the shaking in his in his voice. Client had his friend with him that also works with him. Client reports that he has had an increase in his depression and anxiety to the point that he feels like he is not functioning. Starting to missed work. Client has a gradual weight loss, loss of appetite, low motivation, feels like his head is starting to buzzed and is possibly hearing voices but is confused if it is him thinking or if they are voices. At for eye contact and concentration. Client is currently taking Zoloft 25 mg q.d., gabapentin 100 mg t.i.d., hydroxyzine 25 mg 1-2 tabs q.d. prn, when asked if client is having SI he reports that he has in the past but it also at the point where he does not care if he falls asleep and does not wake up. Active he is able to stay safe he comment was I can not prominence you anything, I will or I will not; client's friend Bhupinder Jacome (on JIM[employer]Z [phone]). For she has known him for a few years and has never seeing him this way in his very worried for him because he is not showing up to work in his visibly in the condition that he is in. Client reports he has had a decrease in sleep, his major brain fog. Client was placed on DTS 5150. Client was not able to articulate any plan of safety. ASSESSMENT The patient was interviewed in observation room. The patient was actively pacing in hallway. The patient endorses "SO, SO." The patient endorses "My anx iety could be better but it is better." "I want to go home but I don't know if I am ready or not." "I get anxious just thinking about going home." Denies SI. Denies HI. Denies AVH. The patient is stable no acute distress noted. The patient presents as co operative, anxious, and engaged during session. The patient noted rocking back and forth in chair. Per staff report patient is medication compliant. Per staff report patient participating in group/unit activities. The patient was encourage to find some coping skills to help deal with his anxiety. Will continue daily assessment and adjusting treatment as needed. Closely monitor behavior and response to medication during hospitalization. Results Of any Diagn. Testing REVIEW OF LABS URINE TOX SCREEN NEGATIVE URINALYSIS NEGATIVE SODIUM 137 POTASSIUM 4.2 CHLORIDE 103 ANION GAP 11 BUN 11 CREATININE 0.91 CALCIUM 9.5 ALBUMIN 4.7 AST 37 ALT 29 WBC 5.8 RBC 5.88 HEMOGLOBIN 16.2 HEMATOCRIT 45.7 PLATELET 328 Appearnace: Other (APPROPRIATE.AVERAGE HEIGHT AND WEIGHT MALE. BLACK HAIR BALDING IN THE FRONT. FULL FACIAL HAIR. WEARING GREEN SCRUBS) Speech: Other (CIRCUMSTANTIAL) Eye Contact: Other (INTERMITTENT) Motor Activity: Normal Affect: Flat Mood: Anxious Orientation Impairment: None Memory Impairment: None Attention: Normal Hallucinations: None Other: None Suicidality: None Homicidality: None Delusions: None Behavior: Cooperative Insight: Fair, Poor Judgment: Poor Treatment PROZAC 30 MG P.O. QAM HYDROXYZINE 50 MG P.O. Q.6 PRN GABAPENTIN 100 MG PO TID Monitoring by Staff, Milieu, Group, and Individual counseling as needed -- According to the [place] Suicide Assessment the above named patient is on Q15 MINUTE CHECKS. VOLUNTARY REVIEW OF Clinical notes [X ] RN notes [X] PCT documentation [X] SW notes Labs [ X] Medications [X] Care trends/care activity [X] Vitals [X] DISCUSSION WITH agricultural equipment test engineer [X] Staff SW [X] Treatment Team [X] Discharge UNSURE AT THIS TIME. DISCHARGE HOME ONCE STABLE CODING VISIT-PSYCHIATRY Date of Service: March 15, 2025 Billing Provider: BERNARD SÁNCHEZ APRN Psych Common Visit Codes: [id number] INP/OBS CARE(Mod) BERNARD SÁNCHEZ APRN March 15, 2025 15:23
[2025-03-15] MEDS ORDERED: gabapentin 100mg capsule PO PRN (15:25)
[2025-03-15] MEDS: LORazepam 1 MG tablet PO ONE (15:36)
--- NOTE | 2025-03-15 17:02 | PROGRESS NOTE ---
Daily Progress Note Providers to CC ~ Antibiotic Timeout Antibiotic Ordered?: No Subjective Patient was seen in mental health unit in his room. He is ambulating well looks comfortable. Working with psychiatric team for his anxiety issues. Objective Vital Signs Date Time Temp Pulse Resp B/P (MAP) Pulse Ox O2 Delivery O2 Flow Rate FiO2 03/15/25 08:00 98.6 65 16 110/69 (83) 98 Room Air General-patient not in any acute distress, alert awake , age-appropriate, appear in stress HEENT-atraumatic normocephalic, neck supple without elevated JVD, no thyromegaly or carotid bruit. No lymphadenopathy bilaterally. Eyes-no icterus or pallor seen in eyes Chest-clear to auscultation bilaterally, breathing nonlabored no tachypnea, no wheezing, no crepitation, no crackles. Heart-S1-S2 normal, regular heart rate no murmur Abdomen bowel sounds positive on auscultation, soft nondistended nontender no guarding, no rigidity Skin no active skin rash Neurology-grossly intact, nonfocal awake cooperated during physical examination Extremity- no pedal edema able to move all 4 extremitie, ambulate Psychiatry - patient appear in stress Problem\Assessment\Plan 54-year-old male presents for feeling of anxiety and stress in suicidal ideations. Further management of patient's stress anxiety and depression as per psychiatric team. Lipid level ordered for a.m. we will continue to follow patient from hospitalist team as needed. Patient is encouraged to hydrate well and to keep up with his meals. Date of Service: March 15, 2025 Billing Provider: TEREZA GLOVER MD Common Visit Codes: [id number] INP/OBS CARE(LOW) TEREZA GLOVER MD March 15, 2025 17:02
[2025-03-15 19:00] VITALS: RESP 16; O2SAT 97
[2025-03-15 20:00] VITALS: BP 114/74; PULSE 67; RESP 16; TEMP 97.8; O2SAT 97
[2025-03-15] MEDS ORDERED: hydrOXYzine 25 MG tablet PO SCH (21:00)
[2025-03-15] MEDS: gabapentin 100mg capsule PO SCH (21:55)
[2025-03-16 08:00] VITALS: BP 106/72; PULSE 73; RESP 16; TEMP 98.6; O2SAT 98
--- NOTE | 2025-03-16 14:03 | PROGRESS NOTE ---
Progress Note Dictate Providers to CC ~ Central Line/PICC still needed: N\\A Antibiotic Ordered?: No MRSA Education MRSA Education Provided to pt: No Objective Vitals Vital Signs Date Time Temp Pulse Resp B/P (MAP) Pulse Ox O2 Delivery O2 Flow Rate FiO2 03/15/25 20:00 97.8 67 16 114/74 (87) 97 Room Air Problem\\Assessment\\Plan Problems/Diagnosis: (1) Depression, unspecified (2) Anxiety disorder, unspecified Psychiatrist's Progress Note Date of Service: March 16, 2025 Notes CHART REVIEW [facility] call [facility] to evaluate client that was brought in by ambulance after having a panic attack. When [facility] arrived to the ER client was in bed 8.. Client was visibly shaking and was having a hard time speaking without having the shaking in his in his voice. Client had his friend with him that also works with him. Client reports that he has had an increase in his depression and anxiety to the point that he feels like he is not functioning. Starting to missed work. Client has a gradual weight loss, loss of appetite, low motivation, feels like his head is starting to buzzed and is possibly hearing voices but is confused if it is him thinking or if they are voices. At for eye contact and concentration. Client is currently taking Zoloft 25 mg q.d., gabapentin 100 mg t.i.d., hydroxyzine 25 mg 1-2 tabs q.d. prn, when asked if client is having SI he reports that he has in the past but it also at the point where he does not care if he falls asleep and does not wake up. Active he is able to stay safe he comment was I can not prominence you anything, I will or I will not; client's friend Bhupinder Jacome (on [employer] [phone]). For she has known him for a few years and has never seeing him this way in his very worried for him because he is not showing up to work in his visibly in the condition that he is in. Client reports he has had a decrease in sleep, his major brain fog. Client was placed on DTS 5150. Client was not able to articulate any plan of safety. ASSESSMENT The patient was interviewed in observation room. The patient was actively sitting in rec room. The patient endorses "I am doing better." "I am waiting on them to fax over paperwork for my disability from my job." "I am just thinking about what I have to deal with, with my home life." "I guess I will have to roll with the punches and deal with it." "Just trying to figure what jaja do when I get home; I don't want to get all missed up about it." "I don't have a plan I guess I will have to wing it." Denies SI. Denies HI. Denies AVH. The patient is stable no acute distress noted. The patient presents as cooperative, less anxious, and engaged during session. The pateitn was smiling and laughing during session. Per staff report patient is medication compliant. Per staff report patient participating in group/unit activities. The patient was encourage to find some coping skills to help deal with his anxiety. Will continue daily assessment and adjusting treatment as needed. Closely monitor behavior and response to medication during hospitalization. Results Of any Diagn. Testing REVIEW OF LABS URINE TOX SCREEN NEGATIVE URINALYSIS NEGATIVE SODIUM 137 POTASSIUM 4.2 CHLORIDE 103 ANION GAP 11 BUN 11 CREATININE 0.91 CALCIUM 9.5 ALBUMIN 4.7 AST 37 ALT 29 WBC 5.8 RBC 5.88 HEMOGLOBIN 16.2 HEMATOCRIT 45.7 PLATELET 328 Appearnace: Other (APPROPRIATE.AVERAGE HEIGHT AND WEIGHT MALE. BLACK HAIR BALDING IN THE FRONT. FULL FACIAL HAIR. WEARING GREEN SCRUBS) Speech: Normal Eye Contact: Normal Motor Activity: Normal Affect: Full Mood: Euthymic Orientation Impairment: None Memory Impairment: None Attention: Normal Hallucinations: None Other: None Suicidality: None Homicidality: None Delusions: None Behavior: Cooperative Insight: Fair Judgment: Fair, Poor Treatment PROZAC 30 MG P.O. QAM HYDROXYZINE 50 MG P.O. Q.6 PRN GABAPENTIN 100 MG PO TID Monitoring by Staff, Milieu, Group, and Individual counseling as needed -- According to the [place] Suicide Assessment the above named patient is on Q15 MINUTE CHECKS. VOLUNTARY Total time spent 40 minutes on REVIEW OF Clinical notes [X ] RN notes [X] PCT documentation [X] SW notes Labs [ X] Medications [X] Care trends/care activity [X] Vitals [X] DISCUSSION WITH used car lot porter [X] Staff SW [X] Treatment Team [X] Discharge UNSURE AT THIS TIME. DISCHARGE HOME ONCE STABLE CODING VISIT-PSYCHIATRY Date of Service: March 16, 2025 Billing Provider: BERNARD SÁNCHEZ APRN Psych Common Visit Codes: [id number] INP/OBS CARE(Mod) BERNARD SÁNCHEZ APRN March 16, 2025 14:03
[2025-03-16 19:30] VITALS: RESP 16; O2SAT 99
[2025-03-16 19:51] VITALS: BP 126/69; PULSE 72; RESP 16; TEMP 97.7; O2SAT 99
[2025-03-17 08:01] VITALS: BP 116/69; PULSE 67; RESP 16; TEMP 97; O2SAT 98
--- NOTE | 2025-03-17 08:32 | PROGRESS NOTE ---
Daily Progress Note Providers to CC ~ Antibiotic Timeout Antibiotic Ordered?: No Objective Vital Signs Date Time Temp Pulse Resp B/P (MAP) Pulse Ox O2 Delivery O2 Flow Rate FiO2 03/17/25 08:01 97.0 67 16 116/69 (85) 98 Room Air A & O X 4 nad cvs ! & 2 hs pos rrr resp. cta b abd soft bs pos nt/nd ext-no c/c/e Problem\Assessment\Plan 54-year-old male presents for feeling of anxiety and stress in suicidal ideations. Further management of patient's stress anxiety and depression as per psychiatric team. Lipid level ordered for a.m. we will continue to follow patient from hospitalist team as needed. Patient is encouraged to hydrate well and to keep up with his meals. -allergic rhinitis-started om claritin check routine labs con't to fallow per protocol Date of Service: March 17, 2025 Billing Provider: GENESIS FLAHERTY MD Common Visit Codes: [id number] SAME DATE (LOW) GENESIS FLAHERTY MD March 17, 2025 08:32
[2025-03-17] MEDS: loratadine 10mg tablet PO SCH (10:06)
--- NOTE | 2025-03-17 16:16 | PROGRESS NOTE ---
Progress Note Dictate Providers to CC ~ Central Line/PICC still needed: N\\A Antibiotic Ordered?: No MRSA Education MRSA Education Provided to pt: No Objective Vitals Vital Signs Date Time Temp Pulse Resp B/P (MAP) Pulse Ox O2 Delivery O2 Flow Rate FiO2 03/17/25 08:01 97.0 67 16 116/69 (85) 98 Room Air Problem\\Assessment\\Plan Problems/Diagnosis: (1) Depression, unspecified (2) Anxiety disorder, unspecified Psychiatrist's Progress Note Date of Service: March 17, 2025 Notes CHART REVIEW [facility] call [facility] to evaluate client that was brought in by ambulance after having a panic attack. When [facility] arrived to the ER client was in bed 8.. Client was visibly shaking and was having a hard time speaking without having the shaking in his in his voice. Client had his friend with him that also works with him. Client reports that he has had an increase in his depression and anxiety to the point that he feels like he is not functioning. Starting to missed work. Client has a gradual weight loss, loss of appetite, low motivation, feels like his head is starting to buzzed and is possibly hearing voices but is confused if it is him thinking or if they are voices. At for eye contact and concentration. Client is currently taking Zoloft 25 mg q.d., gabapentin 100 mg t.i.d., hydroxyzine 25 mg 1-2 tabs q.d. prn, when asked if client is having SI he reports that he has in the past but it also at the point where he does not care if he falls asleep and does not wake up. Active he is able to stay safe he comment was I can not prominence you anything, I will or I will not; client's friend Bhupinder Jacome (on [employer] [phone]). For she has known him for a few years and has never seeing him this way in his very worried for him because he is not showing up to work in his visibly in the condition that he is in. Client reports he has had a decrease in sleep, his major brain fog. Client was placed on DTS 5150. Client was not able to articulate any plan of safety. ASSESSMENT The patient was interviewed in observation room. The patient was actively sitting in rec room. The patient endorses "I am hanging in there." I'm waiting for disability papers to be faxed over; they said it could take 48hrs; I might be outta here by then." Denies SI. Denies HI. Denies AVH. The patient is stable no acute distress noted. The patient presents as cooperative, a bit anxious (about disability papers), and engaged during session. Per staff report no abnormal behaviors. Per staff report patient is medication compliant. Per staff report patient participating in group/unit activities. Will continue daily assessment and adjusting treatment as needed. Closely monitor behavior and response to medication during hospitalization. Results Of any Diagn. Testing REVIEW OF LABS URINE TOX SCREEN NEGATIVE URINALYSIS NEGATIVE SODIUM 137 POTASSIUM 4.2 CHLORIDE 103 ANION GAP 11 BUN 11 CREATININE 0.91 CALCIUM 9.5 ALBUMIN 4.7 AST 37 ALT 29 WBC 5.8 RBC 5.88 HEMOGLOBIN 16.2 HEMATOCRIT 45.7 PLATELET 328 Appearnace: Other (APPROPRIATE.AVERAGE HEIGHT AND WEIGHT MALE. BLACK HAIR BALDING IN THE FRONT. FULL FACIAL HAIR. WEARING GREEN SCRUBS) Speech: Other (CIRCUMSTANTIAL) Eye Contact: Normal Motor Activity: Normal Affect: Full Orientation Impairment: None Memory Impairment: None Attention: Normal Hallucinations: None Other: None Suicidality: None Homicidality: None Delusions: None Behavior: Cooperative Insight: Fair Judgment: Fair Treatment PROZAC 30 MG P.O. QAM HYDROXYZINE 50 MG P.O. Q.6 PRN GABAPENTIN 100 MG PO TID Monitoring by Staff, Milieu, Group, and Individual counseling as needed -- According to the [place] Suicide Assessment the above named patient is on Q15 MINUTE CHECKS. VOLUNTARY Total time spent 40 minutes on REVIEW OF Clinical notes [X ] RN notes [X] PCT documentation [X] SW notes Labs [ X] Medications [X] Care trends/care activity [X] Vitals [X] DISCUSSION WITH nca certified concierge [X] Staff SW [X] Treatment Team [X] Discharge UNSURE AT THIS TIME. DISCHARGE HOME ONCE STABLE CODING VISIT-PSYCHIATRY Date of Service: March 17, 2025 Billing Provider: BERNARD SÁNCHEZ APRN Psych Common Visit Codes: [id number] INP/OBS CARE(Mod) BERNARD SÁNCHEZ APRN March 17, 2025 16:16
[2025-03-17 19:00] VITALS: RESP 18; O2SAT 98
[2025-03-17 20:00] VITALS: BP 127/81; PULSE 83; RESP 18; TEMP 97.9; O2SAT 98
[2025-03-18 07:00] VITALS: RESP 14; O2SAT 96
[2025-03-18 08:00] VITALS: BP 134/86; PULSE 73; RESP 14; TEMP 97.3; O2SAT 96
--- NOTE | 2025-03-18 10:45 | PROGRESS NOTE ---
Progress Note Dictate Providers to CC ~ Central Line/PICC still needed: N\\A Antibiotic Ordered?: No MRSA Education MRSA Education Provided to pt: No Objective Vitals Vital Signs Date Time Temp Pulse Resp B/P (MAP) Pulse Ox O2 Delivery O2 Flow Rate FiO2 03/17/25 20:00 97.9 83 18 127/81 (96) 98 Room Air Problem\\Assessment\\Plan Problems/Diagnosis: (1) Depression, unspecified (2) Anxiety disorder, unspecified Psychiatrist's Progress Note Date of Service: March 18, 2025 Notes CHART REVIEW [facility] call [facility] to evaluate client that was brought in by ambulance after having a panic attack. When [facility] arrived to the ER client was in bed 8.. Client was visibly shaking and was having a hard time speaking without having the shaking in his in his voice. Client had his friend with him that also works with him. Client reports that he has had an increase in his depression and anxiety to the point that he feels like he is not functioning. Starting to missed work. Client has a gradual weight loss, loss of appetite, low motivation, feels like his head is starting to buzzed and is possibly hearing voices but is confused if it is him thinking or if they are voices. At for eye contact and concentration. Client is currently taking Zoloft 25 mg q.d., gabapentin 100 mg t.i.d., hydroxyzine 25 mg 1-2 tabs q.d. prn, when asked if client is having SI he reports that he has in the past but it also at the point where he does not care if he falls asleep and does not wake up. Active he is able to stay safe he comment was I can not prominence you anything, I will or I will not; client's friend Bhupinder Jacome (on [employer]IM[employer]Z [phone]). For she has known him for a few years and has never seeing him this way in his very worried for him because he is not showing up to work in his visibly in the condition that he is in. Client reports he has had a decrease in sleep, his major brain fog. Client was placed on DTS 5150. Client was not able to articulate any plan of safety. ASSESSMENT The patient was interviewed in observation room. The patient was actively sitting in rec room. The patient endorses "I am a little shaky, I'm not sure w hy." "I am trying to meditate to see if that helps." Denies SI. Denies HI. Denies AVH. Patient endorses adequate sleep and food intake. The patient is stable no acute distress noted. The patient presents as cooperative, a bit anxious and engaged during session. Per staff report no abnormal behaviors. Per staff report patient is medication compliant. Per staff report patient participating in group/unit activities. Will continue daily assessment and adjusting treatment as needed. Closely monitor behavior and response to medication during hospitalization. Results Of any Diagn. Testing REVIEW OF LABS URINE TOX SCREEN NEGATIVE URINALYSIS NEGATIVE SODIUM 137 POTASSIUM 4.2 CHLORIDE 103 ANION GAP 11 BUN 11 CREATININE 0.91 CALCIUM 9.5 ALBUMIN 4.7 AST 37 ALT 29 WBC 5.8 RBC 5.88 HEMOGLOBIN 16.2 HEMATOCRIT 45.7 PLATELET 328 Appearnace: Other (APPROPRIATE.AVERAGE HEIGHT AND WEIGHT MALE. BLACK HAIR BALDING IN THE FRONT. FULL FACIAL HAIR. WEARING GREEN SCRUBS) Speech: Other (CIRCUMSTANTIAL) Eye Contact: Other (INTERMITTENT) Motor Activity: Normal Affect: Constricted Mood: Anxious Orientation Impairment: None Memory Impairment: None Attention: Normal Hallucinations: None Other: None Suicidality: None Homicidality: None Delusions: None Behavior: Cooperative Insight: Fair Judgment: Fair Treatment PROZAC 30 MG P.O. QAM HYDROXYZINE 50 MG P.O. Q.6 PRN Increase GABAPENTIN 200 MG PO TID Monitoring by Staff, Milieu, Group, and Individual counseling as needed -- According to the [place] Suicide Assessment the above named patient is on Q15 MINUTE CHECKS. VOLUNTARY Total time spent 45 minutes on REVIEW OF Clinical notes [X ] RN notes [X] PCT documentation [X] SW notes Labs [ X] Medications [X] Care trends/care activity [X] Vitals [X] DISCUSSION WITH spray worker [X] Staff SW [X] Treatment Team [X] Discharge UNSURE AT THIS TIME. DISCHARGE HOME ONCE STABLE CODING VISIT-PSYCHIATRY Date of Service: March 18, 2025 Billing Provider: BERNARD SÁNCHEZ APRN Psych Common Visit Codes: [id number] INP/OBS CARE(Low) BERNARD SÁNCHEZ APRN March 18, 2025 10:45
[2025-03-18] MEDS: gabapentin 100mg capsule PO SCH (13:56)
[2025-03-18 19:00] VITALS: RESP 16
[2025-03-18 20:00] VITALS: RESP 18
[2025-03-19 07:00] VITALS: RESP 16; O2SAT 97
[2025-03-19 08:00] VITALS: BP 136/87; PULSE 85; RESP 16; TEMP 98.1; O2SAT 97
--- NOTE | 2025-03-19 14:45 | PROGRESS NOTE ---
Progress Note Dictate Providers to CC ~ Central Line/PICC still needed: N\\A Antibiotic Ordered?: No MRSA Education MRSA Education Provided to pt: No Objective Vitals Vital Signs Date Time Temp Pulse Resp B/P (MAP) Pulse Ox O2 Delivery O2 Flow Rate FiO2 03/19/25 08:00 98.1 85 16 136/87 (103) 97 Room Air Problem\\Assessment\\Plan Problems/Diagnosis: (1) Depression, unspecified (2) Anxiety disorder, unspecified Psychiatrist's Progress Note Date of Service: March 19, 2025 Notes CHART REVIEW [facility] call [facility] to evaluate client that was brought in by ambulance after having a panic attack. When MCT arrived to the ER client was in bed 8.. Client was visibly shaking and was having a hard time speaking without having the shaking in his in his voice. Client had his friend with him that also works with him. Client reports that he has had an increase in his depression and anxiety to the point that he feels like he is not functioning. Starting to missed work. Client has a gradual weight loss, loss of appetite, low motivation, feels like his head is starting to buzzed and is possibly hearing voices but is confused if it is him thinking or if they are voices. At for eye contact and concentration. Client is currently taking Zoloft 25 mg q.d., gabapentin 100 mg t.i.d., hydroxyzine 25 mg 1-2 tabs q.d. prn, when asked if client is having SI he reports that he has in the past but it also at the point where he does not care if he falls asleep and does not wake up. Active he is able to stay safe he comment was I can not prominence you anything, I will or I will not; client's friend Bhupinder Jacome (on JIMENEZ [phone]). For she has known him for a few years and has never seeing him this way in his very worried for him because he is not showing up to work in his visibly in the condition that he is in. Client reports he has had a decrease in sleep, his major brain fog. Client was placed on DTS 5150. Client was not able to articulate any plan of safety. ASSESSMENT The patient was interviewed in observation room. The patient was actively walking in room. The patient endorses "anxiety." "I am sitting in my room thi nking about my problems." When asked if he is using any copying skills to help with his anxiety the patient endorses "no I will just have to deal with it when I get home." The patient endorses "someone can pick me up by 12pm tomorrow." The endorses being anxious about going home tomorrow and facing his issues at home. Denies SI. Denies HI. Denies AVH. Patient endorses adequate sleep and food intake. The patient is stable no acute distress noted. The patient presents as cooperative, a bit anxious and engaged during session. The patient was encouraged learn and was demonstrated some coping skills to help with his anxiety. Per staff report no abnormal behaviors. Per staff report patient is medication non-compliant. Will continue daily assessment and adjusting treatment as needed. Closely monitor behavior and response to medication during hospitalization. Collateral from Marcie, patient's friend with patient's consent. Marcie and the patient was able to formulate a viable plan for a safe discharge Results Of any Diagn. Testing REVIEW OF LABS URINE TOX SCREEN NEGATIVE URINALYSIS NEGATIVE SODIUM 137 POTASSIUM 4.2 CHLORIDE 103 ANION GAP 11 BUN 11 CREATININE 0.91 CALCIUM 9.5 ALBUMIN 4.7 AST 37 ALT 29 WBC 5.8 RBC 5.88 HEMOGLOBIN 16.2 HEMATOCRIT 45.7 PLATELET 328 Appearnace: Other (APPROPRIATE.AVERAGE HEIGHT AND WEIGHT MALE. BLACK HAIR BALDING IN THE FRONT. FULL FACIAL HAIR. WEARING GREEN SCRUBS) Speech: Other (CIRCUMSTANTIAL) Eye Contact: Other (INTERMITTENT) Motor Activity: Normal Affect: Constricted Mood: Anxious Orientation Impairment: None Memory Impairment: None Attention: Normal Hallucinations: None Other: None Suicidality: None Homicidality: None Delusions: None Behavior: Cooperative Insight: Fair Judgment: Fair, Poor Treatment PROZAC 30 MG P.O. QAM HYDROXYZINE 50 MG P.O. Q.6 PRN Discontinue-GABAPENTIN 200 MG PO TID-refusing Initiate BUSPAR 10MG PO TID Monitoring by Staff, Milieu, Group, and Individual counseling as needed -- According to the [place] Suicide Assessment the above named patient is on Q15 MINUTE CHECKS. VOLUNTARY Total time spent 55 minutes on REVIEW OF Clinical notes [X ] RN notes [X] PCT documentation [X] SW notes Labs [ X] Medications [X] Care trends/care activity [X] Vitals [X] DISCUSSION WITH web site administrator [X] Staff SW [X] Treatment Team [X] Discharge UNSURE AT THIS TIME. DISCHARGE HOME ONCE STABLE CODING VISIT-PSYCHIATRY Date of Service: March 19, 2025 Billing Provider: BERNARD SÁNCHEZ APRN Psych Common Visit Codes: [id number] INP/OBS CARE(Mod) BERNARD SÁNCHEZ APRN March 19, 2025 14:45
[2025-03-19] MEDS: busPIRone 5mg tablet PO SCH (14:59)
--- NOTE | 2025-03-19 18:24 | PROGRESS NOTE- Residence ---
Progress Note - Resident Providers to CC Resident Creating Document: CHETAN MCKEON, ROGE CC: HUAN BURR MD ~ Antibiotic Timeout Antibiotic Ordered?: No Subjective Patient was examined and Mental Health at bedside. Patient does not have any co mplaints and is pleasant. Objective Vital Signs Date Time Temp Pulse Resp B/P (MAP) Pulse Ox O2 Delivery O2 Flow Rate FiO2 03/19/25 08:00 98.1 85 16 136/87 (103) 97 Room Air General: Alert, awake, oriented, not in acute distress HEENT: PERRLA, no icterus, pallor, lymphadenopathy, carotid bruit Respiratory system: Bilateral vesicular breath sounds heard, no adventitious breath sounds CVS: S1-S2 heard, no murmurs/rubs/gallop GI: Soft, nontender, no organomegaly, no guarding/rigidity, bowel sounds present Neuro: No focal neurological deficits present Extremities: No edema cyanosis clubbing/deformities Skin: Warm and dry Assessment Assessment A 54-year-old male has been admitted to mental health unit for anxiety and stress with suicidal ideations. Patient is managed by the Psychiatry team. Hospitalist team is consulted for any medical complaints. Plan Plan Stress, anxiety Suicidal ideations Manage as per hospitalist team Allergic rhinitis Controlled with Claritin Follow up with lipid panel Hospitalist team will continue to follow up with the patient Chetan Mckeon MD Internal Medicine, PGY 1 Date of Service: March 19, 2025 Billing Provider: HUAN BURR MD Common Visit Codes: [id number] INP/OBS CARE(MOD) CHETAN MCKEON RES March 19, 2025 18:24 HUAN BURR MD March 19, 2025 18:52
[2025-03-19 19:20] VITALS: RESP 15; O2SAT 95
[2025-03-19 20:00] VITALS: BP 137/77; PULSE 80; RESP 15; TEMP 96.4; O2SAT 95
[2025-03-19] MEDS ORDERED: busPIRone 5mg tablet PO SCH (21:00)
[2025-03-20 07:00] VITALS: RESP 16; O2SAT 97
[2025-03-20 08:00] VITALS: BP 135/90; PULSE 77; RESP 16; TEMP 96.7; O2SAT 97
--- NOTE | 2025-03-20 10:47 | DISCHARGE SUMMARY ---
Discharge Summary Providers to CC ~ Discharge Summary Admission Diagnosis: DEPRESSION UNSPECIFIED. ANXIETY DISORDER UNSPECIFIED. Hospital Course DATE OF ADMISSION: DATE OF DISCHARGE: Discharge Diagnosis\\Comment: DEPRESSION UNSPECIFIED. ANXIETY DISORDER UNSPECIFIED. Operations\\Procedures: NONE Consultants: MEDICAL TEAM Complications: NONE Condition on DC: Stable 2 or more antipsychotic used: No 2/more antipsychotic addressed: No Does Patient smoke: No Smoking education given.: No Discharge Summary: CHART REVIEW [facility] call [facility] to evaluate client that was brought in by ambulance after having a panic attack. When [facility]CT arrived to the ER client was in bed 8.. Client was visibly shaking and was having a hard time speaking without having the shaking in his in his voice. Client had his friend with him that also works with him. Client reports that he has had an increase in his depression and anxiety to the point that he feels like he is not functioning. Starting to missed work. Client has a gradual weight loss, loss of appetite, low motivation, feels like his head is starting to buzzed and is possibly hearing voices but is confused if it is him thinking or if they are voices. At for eye contact and concentration. Client is currently taking Zoloft 25 mg q.d., gabapentin 100 mg t.i.d., hydroxyzine 25 mg 1-2 tabs q.d. prn, when asked if client is having SI he reports that he has in the past but it also at the point where he does not care if he falls asleep and does not wake up. Active he is able to stay safe he comment was I can not prominence you anything, I will or I will not; client's friend Bhupinder Jacome (on JIMENEZ [phone]). For she has known him for a few years and has never seeing him this way in his very worried for him because he is not showing up to work in his visibly in the condition that he is in. Client reports he has had a decrease in sleep, his major brain fog. Client was placed on DTS 5150. Client was not able to articulate any plan of safety. Patient actively seen and examined on day of discharge 03/20/2025, by myself, CLAIRE Paz. The patient is interviewed in observation room. The patient endorses "Good." Denies SI. Denies HI. Denies AVH. Bebo was able to formulate a safety plan which includes going to the emergency room if symptoms return or worsen. Call [phone] or [phone] for immediate assistance if necessary. During his hospital stay, Bebo receive multidisciplinary treatment she adhered to his medication regimen and has been pleasant and cooperative. She denies any suicidal ideation (SI), homicidal ideation (HI), auditory/visual hallucination (HI). Staff has reported no behavioral issues, and the patient has been sleeping well, adequate food intake, with no mood or behavioral changes noted. The decision to discharge Bebo was made in consensus with the treatment team, including the manager social, community relations police lieutenant, and charge preparation technician on duty. The patient wasE-scribed a 14-day supply of medication. MENTAL STATUS EXAM APPEARANCE: APPROPRIATELY. DRESSED IN STREET CLOTHING. SPEECH: CIRCUMSTANCE EYE CONTACT: NORMAL AFFECT: CONGRUENT WITH MOOD MOOD: "GOOD" ORIENTATION IMPAIRMENT: NONE MEMORY IMPAIRMENT: NONE ATTENTION: NORMAL HALLUCINATIONS: NONE SUICIDALITY: NONE HOMICIDALITY: NONE DELUSIONS: NONE BEHAVIOR: COOPERATIVE, PLEASANT JUDGMENT: FAIR INSIGHT: FAIR Continue Current Inpatient Psychotropic Regimen @ home Follow-Up with Psychiatric Provider Safety Plan Discussed DISCHARGE CONDITION: Her readiness for discharge is supported by his stable mental status, adherence to treatment, and proactive approach to managing his mental health. Denies SI. Denies HI. Denies A/V/H. The patient has been informed to continue follow-up care to ensure ongoing support and monitoring. Patient discharged to home. *Problems/Diagnosis: (1) Depression, unspecified (2) Anxiety disorder, unspecified Total Time Spent on D/C: > 30 Minutes Counseling Services Smoking & Tobacco Cessation: > 10 Minutes CODING VISIT-PSYCHIATRY Date of Service: March 20, 2025 Billing Provider: BERNARD SÁNCHEZ APRN Psych Common Visit Codes: [id number]-OZP/OBS DISCH DAY >30min BERNARD SÁNCHEZ APRN March 20, 2025 10:43
--- NOTE | 2025-03-20 12:58 | PROGRESS NOTE ---
Clinical Note Clinical Note Progress Note: I was requested to go see the mental health patient who suddenly stopped talking all morning with no other neurological deficits was able to move all four extremities without any difficulty. I went to evaluate the patient when he spoke to him he was alert and oriented x3 slightly agitated and moving around in his bed unable to seemed to get comfortable. He does admit to severe anxiety but I did not see any other neurological deficit I had ordered a stat CT of the head which I canceled as patient has no neurological deficits at this time. And maybe his temporary aphasia was from his anxiety. Advised the nursing staff to follow the patient closely if there is any other issues to call Medicine team ever. GENESIS FLAHERTY MD March 20, 2025 12:57
--- NOTE | 2025-03-20 18:41 | PROGRESS NOTE ---
Progress Note Dictate Providers to CC ~ Central Line/PICC still needed: N\A Antibiotic Ordered?: No MRSA Education MRSA Education Provided to pt: No Objective Vitals Vital Signs Date Time Temp Pulse Resp B/P (MAP) Pulse Ox O2 Delivery O2 Flow Rate FiO2 03/20/25 08:00 96.7 77 16 135/90 (105) 97 Room Air Problem\Assessment\Plan Problems/Diagnosis: (1) Depression, unspecified (2) Anxiety disorder, unspecified Psychiatrist's Progress Note Date of Service: March 21, 2025 Notes CHART REVIEW [facility] call [facility] to evaluate client that was brought in by ambulance after having a panic attack. When MCT arrived to the ER client was in bed 8.. Client was visibly shaking and was having a hard time speaking without having the shaking in his in his voice. Client had his friend with him that also works with him. Client reports that he has had an increase in his depression and anxiety to the point that he feels like he is not functioning. Starting to missed work. Client has a gradual weight loss, loss of appetite, low motivation, feels like his head is starting to buzzed and is possibly hearing voices but is confused if it is him thinking or if they are voices. At for eye contact and concentration. Client is currently taking Zoloft 25 mg q.d., gabapentin 100 mg t.i.d., hydroxyzine 25 mg 1-2 tabs q.d. prn, when asked if client is having SI he reports that he has in the past but it also at the point where he does not care if he falls asleep and does not wake up. Active he is able to stay safe he comment was I can not prominence you anything, I will or I will not; client's friend Bhupinder Jacome (on JIMENEZ [phone]). For she has known him for a few years and has never seeing him this way in his very worried for him because he is not showing up to work in his visibly in the condition that he is in. Client reports he has had a decrease in sleep, his major brain fog. Client was placed on DTS 5150. Client was not able to articulate any plan of safety. ASSESSMENT The patient was interviewed in observation room. The patient was actively sitting edge of bed. The patient was supposed to be discharged today. The pat ient would not answer any questions and he avoided eye contact. The patient would just sit in the chair holding his head down. This short story writer called for the patient's RN and charge nurse. Per staff report the patient did the same behavior earlier in the day. This short story writer requested medial team to come evaluate the patient for a change in condition and possible stroke alert. The medical team came to assess patient and requested a STAT head CT. As the medical doctor was out of patients room the patient spoke and had a short conversation with the medical doctor. The patient is stable no acute distress noted. Will continue daily assessment and adjusting treatment as needed. Closely monitor behavior and response to medication during hospitalization. Results Of any Diagn. Testing REVIEW OF LABS URINE TOX SCREEN NEGATIVE URINALYSIS NEGATIVE SODIUM 137 POTASSIUM 4.2 CHLORIDE 103 ANION GAP 11 BUN 11 CREATININE 0.91 CALCIUM 9.5 ALBUMIN 4.7 AST 37 ALT 29 WBC 5.8 RBC 5.88 HEMOGLOBIN 16.2 HEMATOCRIT 45.7 PLATELET 328 Appearnace: Other (APPROPRIATE.AVERAGE HEIGHT AND WEIGHT MALE. BLACK HAIR BALDING IN THE FRONT. FULL FACIAL HAIR. WEARING GREEN SCRUBS) Behavior: Withdrawn Insight: Poor Judgment: Poor Treatment PROZAC 30 MG P.O. QAM HYDROXYZINE 50 MG P.O. Q.6 PRN BUSPAR 10MG PO TID Monitoring by Staff, Milieu, Group, and Individual counseling as needed -- According to the [place] Suicide Assessment the above named patient is on Q15 MINUTE CHECKS. VOLUNTARY Total time spent 65 minutes on REVIEW OF Clinical notes [X ] RN notes [X] PCT documentation [X] SW notes Labs [ X] Medications [X] Care trends/care activity [X] Vitals [X] DISCUSSION WITH thermostatic controls supervisor [X] Staff SW [X] Treatment Team [X] Discharge UNSURE AT THIS TIME. DISCHARGE HOME ONCE STABLE CODING VISIT-PSYCHIATRY Date of Service: March 21, 2025 Billing Provider: BERNARD SÁNCHEZ APRN Psych Common Visit Codes: [id number] INP/OBS CARE(Mod) BERNARD SÁNCHEZ APRN March 20, 2025 18:41
[2025-03-20 20:00] VITALS: BP 144/85; PULSE 74; RESP 18; TEMP 97.4; O2SAT 97
[2025-03-21 08:00] VITALS: BP 144/88; PULSE 86; RESP 16; TEMP 97.7; O2SAT 95
--- NOTE | 2025-03-21 08:43 | PROGRESS NOTE ---
Progress Note Dictate Providers to CC ~ Central Line/PICC still needed: N\A Antibiotic Ordered?: No MRSA Education MRSA Education Provided to pt: No Objective Vitals Vital Signs Date Time Temp Pulse Resp B/P (MAP) Pulse Ox O2 Delivery O2 Flow Rate FiO2 03/20/25 20:00 97.4 74 18 144/85 (104) 97 Room Air Problem\Assessment\Plan Problems/Diagnosis: (1) Depression, unspecified (2) Anxiety disorder, unspecified Psychiatrist's Progress Note Date of Service: March 21, 2025 Notes CHART REVIEW [facility] call [facility] to evaluate client that was brought in by ambulance after having a panic attack. When [facility]CT arrived to the ER client was in bed 8.. Client was visibly shaking and was having a hard time speaking without having the shaking in his in his voice. Client had his friend with him that also works with him. Client reports that he has had an increase in his depression and anxiety to the point that he feels like he is not functioning. Starting to missed work. Client has a gradual weight loss, loss of appetite, low motivation, feels like his head is starting to buzzed and is possibly hearing voices but is confused if it is him thinking or if they are voices. At for eye contact and concentration. Client is currently taking Zoloft 25 mg q.d., gabapentin 100 mg t.i.d., hydroxyzine 25 mg 1-2 tabs q.d. prn, when asked if client is having SI he reports that he has in the past but it also at the point where he does not care if he falls asleep and does not wake up. Active he is able to stay safe he comment was I can not prominence you anything, I will or I will not; client's friend Bhupinder Jacome (on JIMENEZ [phone]). For she has known him for a few years and has never seeing him this way in his very worried for him because he is not showing up to work in his visibly in the condition that he is in. Client reports he has had a decrease in sleep, his major brain fog. Client was placed on DTS 5150. Client was not able to articulate any plan of safety. ASSESSMENT The patient was interviewed in designated room. The patient was actively sitting edge of bed. The patient would not answer any questions would just si tting edge of bed with no eye contact. The patient has no muscle rigidity, no abnormal/or repetitive movements of head, mouth, BLE or PATRICIA extremities. The patient is stable no acute distress noted. Will continue daily assessment and adjusting treatment as needed. Closely monitor behavior and response to medication during hospitalization. Collateral received from Yhue-[id number]/friend/co-worker. Roni endorses her in Bebo were in a relationship and broke up two years ago and she is now . Roni endorses Bebo has no family, no nothing and he is afraid to be alone. Bhupinder also endorses that she hired Bebo after he was losing his job at [employer] and Bebo is having hard time at his current place of employment. 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 Bhupinder endorses she is also a shift lead and they have a lot of duties. 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 Bhupinder endorses at this time work became very hard for Bebo due to all the duties that needs to be completed. Bhupinder endorses Bebo has not spoken with his kids in years, his brother with the last six months for Bebo have not seen or spoken to him in the last 10 years. Results Of any Diagn. Testing REVIEW OF LABS URINE TOX SCREEN NEGATIVE URINALYSIS NEGATIVE SODIUM 137 POTASSIUM 4.2 CHLORIDE 103 ANION GAP 11 BUN 11 CREATININE 0.91 CALCIUM 9.5 ALBUMIN 4.7 AST 37 ALT 29 WBC 5.8 RBC 5.88 HEMOGLOBIN 16.2 HEMATOCRIT 45.7 PLATELET 328 Appearnace: Other (APPROPRIATE.AVERAGE HEIGHT AND WEIGHT MALE. BLACK HAIR BALDING IN THE FRONT. FULL FACIAL HAIR. WEARING GREEN SCRUBS) Insight: Poor Judgment: Poor Treatment PROZAC 30 MG P.O. QAM HYDROXYZINE 50 MG P.O. Q.6 PRN BUSPAR 10MG PO TID HEAD CT ORDERED Monitoring by Staff, Milieu, Group, and Individual counseling as needed -- According to the [place] Suicide Assessment the above named patient is on Q15 MINUTE CHECKS. VOLUNTARY Total time spent 45 minutes on REVIEW OF Clinical notes [X ] RN notes [X] PCT documentation [X] SW notes Labs [ X] Medications [X] Care trends/care activity [X] Vitals [X] DISCUSSION WITH dual rate dealer [X] Staff SW [X] Treatment Team [X] Discharge UNSURE AT THIS TIME. DISCHARGE HOME ONCE STABLE CODING VISIT-PSYCHIATRY Date of Service: March 21, 2025 Billing Provider: BERNARD SÁNCHEZ APRN Psych Common Visit Codes: [id number] INP/OBS CARE(Mod) BERNARD SÁNCHEZ APRN March 21, 2025 08:43
[2025-03-21] MEDS: LORazepam 1 MG tablet PO ONE (17:07)
[2025-03-21 19:27] VITALS: RESP 16; O2SAT 96
--- NOTE | 2025-03-21 19:27 | PROGRESS NOTE ---
Daily Progress Note Providers to CC ~ Antibiotic Timeout Antibiotic Ordered?: No Subjective This is the hospitalist progress note on patients hospitalized at [facility]. The patient did not speak much to me and mumbled couple of words there were no acute medical complaints or concerns voiced by nursing staff Objective Vital Signs Date Time Temp Pulse Resp B/P (MAP) Pulse Ox O2 Delivery O2 Flow Rate FiO2 03/21/25 08:00 97.7 86 16 144/88 (106) 95 Room Air Gen. No acute distress alert Lungs clear to ascultation bilaterally, no wheezes rales or rhonchi appreciated Heart normal sinus rhythm no murmurs rubs or clicks noted Abdomen soft nontender bowel sounds are normoactive Lower extremities no clubbing cyanosis, nor edema appreciated bilaterally Problem\Assessment\Plan 54-year-old male presents for feeling of anxiety and stress in suicidal ideations. Further management of patient's stress anxiety and depression as per psychiatric team. -allergic rhinitis-started om claritin The Hospitalist service will continue to follow the patient while hospitalized at [facility] Date of Service: March 21, 2025 Billing Provider: MIRZA PRADO DO Common Visit Codes: [id number] INP/OBS CARE(LOW) MIRZA PRADO DO March 21, 2025 19:27
[2025-03-21] MEDS: LORazepam 1 MG tablet PO SCH (19:43)
[2025-03-21 20:00] VITALS: BP 125/92; PULSE 72; RESP 16; TEMP 98.2; O2SAT 96
--- NOTE | 2025-03-21 21:17 | RADIOLOGY REPORT ---
CT CT HEAD W/ NO CONTRSTW/WO IV CM CONTRAST INDICATION: Sudden loss of speech COMPARISON: None TECHNIQUE: CT of the head without intravenous contrast. RADIATION DOSE: CTDIvol: mGy, DLP: mGy*cm FINDINGS: There is no evidence of intracranial hemorrhage, infarct, extra-axial collection, mass effect, midli ne shift, herniation or hydrocephalus. The ventricles, sulci and cisterns are normal. The francis-white differentiation is normal. Visualized paranasal sinuses and mastoid air cells are clear. Soft tissues and osseous structures are unremarkable. IMPRESSION: No intracranial abnormality identified.
[2025-03-22 08:01] VITALS: RESP 16
--- NOTE | 2025-03-22 11:40 | PROGRESS NOTE ---
Progress Note Dictate Providers to CC ~ Central Line/PICC still needed: N\\A Antibiotic Ordered?: No MRSA Education MRSA Education Provided to pt: No Objective Vitals Vital Signs Date Time Temp Pulse Resp B/P (MAP) Pulse Ox O2 Delivery O2 Flow Rate FiO2 03/22/25 08:01 16 03/21/25 20:00 98.2 72 125/92 (103) 96 Room Air Problem\\Assessment\\Plan Problems/Diagnosis: (1) Depression, unspecified (2) Anxiety disorder, unspecified Psychiatrist's Progress Note Date of Service: March 22, [address] [facility] call [facility] to evaluate client that was brought in by ambulance after having a panic attack. When MCT arrived to the ER client was in bed 8.. Client was visibly shaking and was having a hard time speaking without having the shaking in his in his voice. Client had his friend with him that also works with him. Client reports that he has had an increase in his depression and anxiety to the point that he feels like he is not functioning. Starting to missed work. Client has a gradual weight loss, loss of appetite, low motivation, feels like his head is starting to buzzed and is possibly hearing voices but is confused if it is him thinking or if they are voices. At for eye contact and concentration. Client is currently taking Zoloft 25 mg q.d., gabapentin 100 mg t.i.d., hydroxyzine 25 mg 1-2 tabs q.d. prn, when asked if client is having SI he reports that he has in the past but it also at the point where he does not care if he falls asleep and does not wake up. Active he is able to stay safe he comment was I can not prominence you anything, I will or I will not; client's friend Bhupinder Jacome (on JIMENEZ [phone]). For she has known him for a few years and has never seeing him this way in his very worried for him because he is not showing up to work in his visibly in the condition that he is in. Client reports he has had a decrease in sleep, his major brain fog. Client was placed on DTS 5150. Client was not able to articulate any plan of safety. ASSESSMENT The patient was interviewed in observation room. The patient was actively sitting edge of bed. The patient would not mouth any words, he just keep mumbling and shaking his head. The patient the made the gesture appears to be asking to write something down but was unable to write. denies SI. Denies HI. Denies AVH. The patient is stable no acute distress noted. Per staff report patient intermittently speaking an voicing concerns during NOC shift. Per NOC shift RN the patient took a shower last night and shaved his chest after his CT scan. Per RN report the patient was in the shower over 30 minutes and when she knocked on door to check on him the patient voiced "I am doing alright." Despite normal head CT patient is not talking to this freelance copywriter public works inspector. Per staff report patient ate all of his lunch. Per staff report the patient refused his medication for AM but took his medication last night. Will continue daily assessment and adjusting treatment as needed. Closely monitor behavior and response to medication during hospitalization. This appears to behavioral issues vs medical or psych. The patient is noted talking on NOC shift. Results Of any Diagn. Testing REVIEW OF LABS CT CT HEAD W/ NO CONTRSTW/WO IV CM CONTRAST INDICATION: Sudden loss of speech COMPARISON: None TECHNIQUE: CT of the head without intravenous contrast. RADIATION DOSE: CTDIvol: mGy, DLP: mGy*cm FINDINGS: There is no evidence of intracranial hemorrhage, infarct, extra-axial collection, mass effect, midline shift, herniation or hydrocephalus. The ventricles, sulci and cisterns are normal. The francis-white differentiation is normal. Visualized paranasal sinuses and mastoid air cells are clear. Soft tissues and osseous structures are unremarkable. IMPRESSION: No intracranial abnormality identified. URINE TOX SCREEN NEGATIVE URINALYSIS NEGATIVE SODIUM 137 POTASSIUM 4.2 CHLORIDE 103 ANION GAP 11 BUN 11 CREATININE 0.91 CALCIUM 9.5 ALBUMIN 4.7 AST 37 ALT 29 WBC 5.8 RBC 5.88 HEMOGLOBIN 16.2 HEMATOCRIT 45.7 PLATELET 328 Appearnace: Other (APPROPRIATE.AVERAGE HEIGHT AND WEIGHT MALE. BLACK HAIR BALDING IN THE FRONT. FULL FACIAL HAIR. WEARING GREEN SCRUBS) Eye Contact: Avoidant Affect: Constricted Hallucinations: None Other: None Suicidality: None Homicidality: None Delusions: None Behavior: Guarded Insight: Poor Judgment: Poor Treatment PROZAC 30 MG P.O. QAM HYDROXYZINE 50 MG P.O. Q.6 PRN BUSPAR 10MG PO TID Monitoring by Staff, Milieu, Group, and Individual counseling as needed -- According to the [place] Suicide Assessment the above named patient is on Q15 MINUTE CHECKS. VOLUNTARY Total time spent 30 minutes on REVIEW OF Clinical notes [X ] RN notes [X] PCT documentation [X] SW notes Labs [ X] Medications [X] Care trends/care activity [X] Vitals [X] DISCUSSION WITH supervisor nuclear medicine [X] Staff SW [X] Treatment Team [X] Discharge UNSURE AT THIS TIME. DISCHARGE HOME ONCE STABLE CODING VISIT-PSYCHIATRY Date of Service: March 22, 2025 Billing Provider: BERNARD SÁNCHEZ APRN Psych Common Visit Codes: [id number] INP/OBS CARE(Mod) BERNARD SÁNCHEZ APRN March 22, 2025 11:40
[2025-03-22] MEDS: busPIRone 5mg tablet PO SCH (13:13)
[2025-03-22 18:47] VITALS: RESP 16
[2025-03-22 19:42] VITALS: BP 132/84; PULSE 61; RESP 16; TEMP 97.9; O2SAT 99
[2025-03-22] MEDS: ibuprofen 200mg tablet PO ONE (20:07)
[2025-03-23 07:09] VITALS: BP 133/89; PULSE 92; RESP 16; TEMP 98.3; O2SAT 94
[2025-03-23 08:00] VITALS: RESP 16; O2SAT 94
--- NOTE | 2025-03-23 13:08 | PROGRESS NOTE ---
Progress Note Dictate Providers to CC ~ Central Line/PICC still needed: N\\A Antibiotic Ordered?: No MRSA Education MRSA Education Provided to pt: No Objective Vitals Vital Signs Date Time Temp Pulse Resp B/P (MAP) Pulse Ox O2 Delivery O2 Flow Rate FiO2 03/23/25 07:09 98.3 92 16 133/89 (104) 94 Room Air Problem\\Assessment\\Plan Problems/Diagnosis: (1) Depression, unspecified (2) Anxiety disorder, unspecified Psychiatrist's Progress Note Date of Service: March 23, 2025 Notes CHART REVIEW [facility] call [facility] to evaluate client that was brought in by ambulance after having a panic attack. When MCT arrived to the ER client was in bed 8.. Client was visibly shaking and was having a hard time speaking without having the shaking in his in his voice. Client had his friend with him that also works with him. Client reports that he has had an increase in his depression and anxiety to the point that he feels like he is not functioning. Starting to missed work. Client has a gradual weight loss, loss of appetite, low motivation, feels like his head is starting to buzzed and is possibly hearing voices but is confused if it is him thinking or if they are voices. At for eye contact and concentration. Client is currently taking Zoloft 25 mg q.d., gabapentin 100 mg t.i.d., hydroxyzine 25 mg 1-2 tabs q.d. prn, when asked if client is having SI he reports that he has in the past but it also at the point where he does not care if he falls asleep and does not wake up. Active he is able to stay safe he comment was I can not prominence you anything, I will or I will not; client's friend Bhupinder Jacome (on JIMENEZ [phone]). For she has known him for a few years and has never seeing him this way in his very worried for him because he is not showing up to work in his visibly in the condition that he is in. Client reports he has had a decrease in sleep, his major brain fog. Client was placed on DTS 5150. Client was not able to articulate any plan of safety. ASSESSMENT The patient was interviewed in designated room. The patient was actively resting in bed with eyes open. This pattern chart writer approached patient with the healthcare social worker and patient would not speak. He just laid there shaking his legs but upon entering the room the patient was resting comfortably. The patient was informed he will be discharging Friday and he has a follow-up appointment with mental health provider on Friday. collateral received from Roni, patients ex-girlfriend in the presence of the patient. Roni confirmed that she will pick patient up after 430pm on Friday. This pattern chart writer later returned with RN to review the discharge plan. When asked the patient why he does not want to go home the patient voiced "I have no home." When asked you have no home the patient shook his head no. This pattern chart writer phoned Roni, and Roni endorses"he has a home I was just there cleaning it up and it is already for him." Roni endorses someone will be able to stay to stay with Bebo for awhile until he improves. The patient voices "I need protection." When asked from whom he would not answer. At this time Roni remained on the phone and endorses "The patient had some issues with a friend about 2 years ago but that friend is no longer around and those issues have resolved. Denies SI. Denies HI. denies AVH. The patient endorses adequate sleep. Per staff report patient slept 8.75 hours. The patient is stable no acute distress noted. Per staff report patient intermittently speaking an voicing concerns during NOC shift. Per staff report the patient took his AM medication but refused his afternoon Buspar. Per staff report the patient took PM medication. Will continue daily assessment and adjusting treatment as needed. Closely monitor behavior and response to medication during hospitalization. We will continue with discharged as planned for Friday. Results Of any Diagn. Testing REVIEW OF LABS CT CT HEAD W/ NO CONTRSTW/WO IV CM CONTRAST INDICATION: Sudden loss of speech COMPARISON: None TECHNIQUE: CT of the head without intravenous contrast. RADIATION DOSE: CTDIvol: mGy, DLP: mGy*cm FINDINGS: There is no evidence of intracranial hemorrhage, infarct, extra-axial collection, mass effect, midline shift, herniation or hydrocephalus. The ventricles, sulci and cisterns are normal. The francis-white differentiation is normal. Visualized paranasal sinuses and mastoid air cells are clear. Soft tissues and osseous structures are unremarkable. IMPRESSION: No intracranial abnormality identified. URINE TOX SCREEN NEGATIVE URINALYSIS NEGATIVE SODIUM 137 POTASSIUM 4.2 CHLORIDE 103 ANION GAP 11 BUN 11 CREATININE 0.91 CALCIUM 9.5 ALBUMIN 4.7 AST 37 ALT 29 WBC 5.8 RBC 5.88 HEMOGLOBIN 16.2 HEMATOCRIT 45.7 PLATELET 328 Appearnace: Other Speech: Impoverished Eye Contact: Avoidant Motor Activity: Normal Affect: Constricted Orientation Impairment: None Hallucinations: None Other: None Suicidality: None Homicidality: None Delusions: None Behavior: Guarded Treatment PROZAC 30 MG P.O. QAM HYDROXYZINE 50 MG P.O. Q.6 PRN BUSPAR 10MG PO TID Monitoring by Staff, Milieu, Group, and Individual counseling as needed -- According to the [place] Suicide Assessment the above named patient is on Q15 MINUTE CHECKS. VOLUNTARY Total time spent 40 minutes on REVIEW OF Clinical notes [X ] RN notes [X] PCT documentation [X] SW notes Labs [ X] Medications [X] Care trends/care activity [X] Vitals [X] DISCUSSION WITH correctional food service supervisor [X] Staff SW [X] Treatment Team [X] Discharge UNSURE AT THIS TIME. DISCHARGE HOME ONCE STABLE CODING VISIT-PSYCHIATRY Date of Service: March 23, 2025 Billing Provider: BERNARD SÁNCHEZ APRN Psych Common Visit Codes: [id number] INP/OBS CARE(Low) BERNARD SÁNCHEZ APRN March 23, 2025 13:08
[2025-03-23 19:01] VITALS: RESP 16; O2SAT 96
[2025-03-23 19:23] VITALS: RESP 16
--- NOTE | 2025-03-23 21:23 | PROGRESS NOTE ---
Daily Progress Note Providers to CC ~ Antibiotic Timeout Antibiotic Ordered?: No Subjective This is the hospitalist progress note on patients hospitalized at [facility] the patient is now nonverbal since he was about to be discharged home. The patient looked at me but would not speak and mostly just rocked and forth sitting on his bed Objective Vital Signs Date Time Temp Pulse Resp B/P (MAP) Pulse Ox O2 Delivery O2 Flow Rate FiO2 03/23/25 19:23 16 Room Air 03/23/25 19:01 96 03/23/25 07:09 98.3 92 133/89 (104) Gen. No acute distress alert Lungs clear to ascultation bilaterally, no wheezes rales or rhonchi appreciated Heart normal sinus rhythm no murmurs rubs or clicks noted Abdomen soft nontender bowel sounds are normoactive Lower extremities no clubbing cyanosis, nor edema appreciated bilaterally Problem\Assessment\Plan 54-year-old male presents for feeling of anxiety and stress in suicidal ideations. Further management of patient's stress anxiety and depression as per psychiatric team. -allergic rhinitis-started om claritin - likely adjustment disorder- The patient has been nonverbal since he was about to be discharged The Hospitalist service will continue to follow the patient while hospitalized at [facility] Date of Service: March 23, 2025 Billing Provider: MIRZA PRADO DO Common Visit Codes: [id number] INP/OBS CARE(LOW) MIRZA PRADO DO March 23, 2025 21:23
[2025-03-24 07:00] VITALS: RESP 16; O2SAT 99
[2025-03-24 08:00] VITALS: BP 130/91; PULSE 96; RESP 16; TEMP 97.5; O2SAT 99
--- NOTE | 2025-03-24 14:25 | PROGRESS NOTE ---
Progress Note Dictate Providers to CC ~ Central Line/PICC still needed: N\A Antibiotic Ordered?: No MRSA Education MRSA Education Provided to pt: No Objective Vitals Vital Signs Date Time Temp Pulse Resp B/P (MAP) Pulse Ox O2 Delivery O2 Flow Rate FiO2 03/24/25 08:00 97.5 96 16 130/91 (104) 99 Room Air Problem\Assessment\Plan Problems/Diagnosis: (1) Depression, unspecified (2) Anxiety disorder, unspecified Psychiatrist's Progress Note Date of Service: March 24, 2025 Notes CHART REVIEW [facility] call MCT to evaluate client that was brought in by ambulance after having a panic attack. When MCT arrived to the ER client was in bed 8.. Client was visibly shaking and was having a hard time speaking without having the shaking in his in his voice. Client had his friend with him that also works with him. Client reports that he has had an increase in his depression and anxiety to the point that he feels like he is not functioning. Starting to missed work. Client has a gradual weight loss, loss of appetite, low motivation, feels like his head is starting to buzzed and is possibly hearing voices but is confused if it is him thinking or if they are voices. At for eye contact and concentration. Client is currently taking Zoloft 25 mg q.d., gabapentin 100 mg t.i.d., hydroxyzine 25 mg 1-2 tabs q.d. prn, when asked if client is having SI he reports that he has in the past but it also at the point where he does not care if he falls asleep and does not wake up. Active he is able to stay safe he comment was I can not prominence you anything, I will or I will not; client's friend Bhupinder Jacome (on JIMENEZ [phone]). For she has known him for a few years and has never seeing him this way in his very worried for him because he is not showing up to work in his visibly in the condition that he is in. Client reports he has had a decrease in sleep, his major brain fog. Client was placed on DTS 5150. Client was not able to articulate any plan of safety. ASSESSMENT The patient was interviewed in designated room. The patient was actively sitting edge of bed. This personal lines underwriter approached patient with the head charger to rev iew discharge instructions and medications. The patient speak a few incomprehensible words. Collateral received from Roni, patients ex-girlfriend in the presence of the patient. Roni confirmed that Bebo will have someone with him 24hrs. 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 The patient is stable no acute distress noted. Per staff report patient intermittently speech. Per staff report patient ate 25% of his lunch. Per staff report no abnormal behaviors. Will continue daily assessment and adjusting treatment as needed. Closely monitor behavior and response to medication during hospitalization. Results Of any Diagn. Testing REVIEW OF LABS CT CT HEAD W/ NO CONTRSTW/WO IV CM CONTRAST INDICATION: Sudden loss of speech COMPARISON: None TECHNIQUE: CT of the head without intravenous contrast. RADIATION DOSE: CTDIvol: mGy, DLP: mGy*cm FINDINGS: There is no evidence of intracranial hemorrhage, infarct, extra-axial collection, mass effect, midline shift, herniation or hydrocephalus. The rafael tricles, sulci and cisterns are normal. The francis-white differentiation is normal. Visualized paranasal sinuses and mastoid air cells are clear. Soft tissues and osseous structures are unremarkable. IMPRESSION: No intracranial abnormality identified. URINE TOX SCREEN NEGATIVE URINALYSIS NEGATIVE SODIUM 137 POTASSIUM 4.2 CHLORIDE 103 ANION GAP 11 BUN 11 CREATININE 0.91 CALCIUM 9.5 ALBUMIN 4.7 AST 37 ALT 29 WBC 5.8 RBC 5.88 HEMOGLOBIN 16.2 HEMATOCRIT 45.7 PLATELET 328 Appearnace: Other Speech: Impoverished Eye Contact: Avoidant Motor Activity: Normal Affect: Constricted Behavior: Other (UNCOOPERATIVE) Insight: Poor Judgment: Poor Treatment PROZAC 30 MG P.O. QAM HYDROXYZINE 50 MG P.O. Q.6 PRN BUSPAR 10MG PO TID Monitoring by Staff, Milieu, Group, and Individual counseling as needed -- According to the [place] Suicide Assessment the above named patient is on Q15 MINUTE CHECKS. VOLUNTARY Total time spent 30 minutes on REVIEW OF Clinical notes [X ] RN notes [X] PCT documentation [X] SW notes Labs [ X] Medications [X] Care trends/care activity [X] Vitals [X] DISCUSSION WITH auto parts clerk [X] Staff SW [X] Treatment Team [X] Discharge UNSURE AT THIS TIME. DISCHARGE HOME ONCE STABLE CODING VISIT-PSYCHIATRY Date of Service: March 24, 2025 Billing Provider: BERNARD SÁNCHEZ APRN Psych Common Visit Codes: [id number] INP/OBS CARE(Low) BERNARD SÁNCHEZ APRN March 24, 2025 14:25
[2025-03-24 19:00] VITALS: RESP 12
[2025-03-24 20:00] VITALS: PULSE 65; RESP 12
[2025-03-25 07:30] VITALS: BP 139/93; PULSE 92; RESP 14; TEMP 97.7; O2SAT 97
[2025-03-25] MEDS ORDERED: FLUO-81 PO (11:34)
[2025-03-25] MEDS ORDERED: LORA10TA7 PO (11:34)
[2025-03-25] MEDS ORDERED: TRAZ-251 PO (11:34)
--- NOTE | 2025-03-25 11:35 | DISCHARGE SUMMARY ---
Discharge Summary Providers to CC ~ Discharge Summary Admission Diagnosis: DEPRESSION UNSPECIFIED. ANXIETY DISORDER UNSPECIFIED. Hospital Course DATE OF ADMISSION: DATE OF DISCHARGE: Discharge Diagnosis\Comment: DEPRESSION UNSPECIFIED. ANXIETY DISORDER UNSPECIFIED. Operations\Procedures: NONE Consultants: MEDICAL TEAM Complications: THE PATIENT HAS SELECTIVE SPEECH THAT STARTED ON PREVIOUS DISCHARGE DAY LAST FRIDAY. THE PATIENT HAD HEAD CT-NORMAL. Condition on DC: Stable 2 or more antipsychotic used: No 2/more antipsychotic addressed: No Does Patient smoke: No Smoking education given.: No New Medications: Fluoxetine Hcl (Fluoxetine Hcl) 10 Mg Capsule 30 MG PO DAILY for 14 Days, #14 CAP Loratadine (Loratadine) 10 Mg Tablet 10 MG PO DAILY for 14 Days, #14 TAB Trazodone HCl (Trazodone HCl) 50 Mg Tablet 50 MG PO HS PRN for sleep for 14 Days, #14 TAB Discharge Summary: CHART REVIEW [facility] call [facility] to evaluate client that was brought in by ambulance after having a panic attack. When MCT arrived to the ER client was in bed 8.. Client was visibly shaking and was having a hard time speaking without having the shaking in his in his voice. Client had his friend with him that also works with him. Client reports that he has had an increase in his depression and anxiety to the point that he feels like he is not functioning. Starting to missed work. Client has a gradual weight loss, loss of appetite, low motivation, feels like his head is starting to buzzed and is possibly hearing voices but is confused if it is him thinking or if they are voices. At for eye contact and concentration. Client is currently taking Zoloft 25 mg q.d., gabapentin 100 mg t.i.d., hydroxyzine 25 mg 1-2 tabs q.d. prn, when asked if client is having SI he reports that he has in the past but it also at the point where he does not care if he falls asleep and does not wake up. Active he is able to stay safe he comment was I can not prominence you anything, I will or I will not; client's friend Bhupinder Jacome (on JIMENEZ [phone]). For she has known him for a few years and has never seeing him this way in his very worried for him because he is not showing up to work in his visibly in the condition that he is in. Client reports he has had a decrease in sleep, his major brain fog. Client was placed on DTS 5150. Client was not able to articulate any plan of safety. Patient actively seen and examined on day of discharge 03/25/2025, by myself, CLAIRE Paz. The patient is interviewed in designated room. Denies SI. Denies HI. Denies AVH. During his hospital stay, Bebo receive multidisciplinary treatment he adhered to his medication regimen and has been pleasant and cooperative. He denies any suicidal ideation (SI), homicidal ideation (HI), auditory/visual hallucination (HI). Staff has reported no behavioral issues, and the patient has been sleeping well, moderate food intake, with no mood or behavioral changes noted. The decision to discharge Laura was made in consensus with the treatment team, including the social worker health services, community organization worker, and battery charger on duty. The patient was E-scribed a 14-day of supply of medication to preferred pharmacy. MENTAL STATUS EXAM APPEARANCE: APPROPRIATELY. DRESSED IN GREEN SCRUBS. SPEECH: EYE CONTACT: NORMAL AFFECT: CONGRUENT WITH MOOD MOOD: ORIENTATION IMPAIRMENT: NONE MEMORY IMPAIRMENT: NONE ATTENTION: HALLUCINATIONS: NONE SUICIDALITY: NONE HOMICIDALITY: NONE DELUSIONS:NONE BEHAVIOR: UNCOOPERATIVE JUDGMENT: POOR INSIGHT: POOR Continue Current Inpatient Psychotropic Regimen @ home Follow-Up with Psychiatric Provider Safety Plan Discussed DISCHARGE CONDITION: Her readiness for discharge is supported by his stable mental status, adherence to treatment, and proactive approach to managing his mental health. Denies SI. Denies HI. Denies A/V/H. The patient has been informed to continue follow-up care to ensure ongoing support and monitoring. Patient discharged to home. *Problems/Diagnosis: (1) Depression, unspecified (2) Anxiety disorder, unspecified Total Time Spent on D/C: > 30 Minutes Counseling Services Smoking & Tobacco Cessation: N/A CODING VISIT-PSYCHIATRY Date of Service: March 25, 2025 Billing Provider: BERNARD SÁNCHEZ APRN Psych Common Visit Codes: [id number] DISCH DAY >30min BERNARD SÁNCHEZ APRN March 25, 2025 11:31
== END 2025-03-25 17:50 | disposition home or self-care (01) | DRG 881 ==
LOC: UNDOADMIN 21:00 → ADULT MH 21:00
PROVIDERS: ADMIT Psychiatry & Neurology Psychiatry; ATTEND Psychiatry & Neurology Psychiatry
DX: F32.A Depression, unspecified (principal); R45.851 Suicidal ideations; F41.9 Anxiety disorder, unspecified; Z79.899 Other long term (current) drug therapy
CPT/HCPCS: 70450; 87081; 99285; A6250; Q0177